=== PATIENT | female | born 1950 | race African-American/Black ===

== ENCOUNTER → 2017-07-05 10:36 | Outpatient (CLI) | payer MEDICARE, OTHER, SELFPAY ==
--- NOTE | 2017-07-05 10:40 | MM_ITS ---
MM Dig screening mamm BI w/CAD CAD Screening COMPARISON: Digital mammograms 03/13/2014 and 09/15/2015 INDICATION: There is history of breast cancer patient's sister and maternal cousin. There has been previous biopsy left breast for benign disease TECHNIQUE: Standard CC and MLO images were obtained. R2 CAD reviewed. FINDINGS: Moderate diffuse fibroglandular and heterogenic densities are seen throughout both breasts. The findings are bilateral and symmetrical. There is a stable asymmetric benign-appearing density inferior left breast. There is no suspicious lesion and there are no suspicious microcalcifications. IMPRESSION: Diffusely dense parenchymal pattern no suspicious lesion seen BI-RADS Category: 2 Benign Finding(s) RECOMMENDED FOLLOW-UP: 1YR - 1 YEAR FOLLOW-UP (A letter has been sent to the patient regarding results of the study.)
== END ==
PROVIDERS: Family Provider Family Medicine; PCP Family Medicine; Visit Provider Family Medicine
DX: Z12.31 Encounter for screening mammogram for malignant neoplasm of breast (principal)
CPT/HCPCS: 77067

== ENCOUNTER → 2017-09-06 07:49 | Outpatient (CLI) | payer MEDICARE, OTHER, SELFPAY ==
--- NOTE | 2017-09-06 07:52 | US_ITS ---
US gallbladder HISTORY: ITS.REASON: RUQ PAIN ORDERING PHYSICIAN: Jesus Gannon MD PATIENT AGE: 67 years COMPARISON: None FINDINGS: PANCREAS: Unremarkable. No obvious mass or abnormal fluid collection. No ductal dilatation LIVER: There are multiple slightly hypoechoic liver lesions the largest in the right hepatic lobe inferiorly measuring 7 x 6 cm. These are suspicious for metastasis. No biliary dilatation. RIGHT KIDNEY: Unremarkable. Normal size and echogenicity. No hydronephrosis GALLBLADDER: A normal gallbladder is not identified. There is an arc of increased echogenicity with posterior acoustical shadowing in the region of the gallbladder fossa consistent with gallbladder filled with stones. No gallbladder wall thickening or pericholecystic fluid, bile duct is upper normal at 7 mm. IMPRESSION: 1. Multiple suspicious hepatic lesions consistent with metastatic disease. Recommend CT of the abdomen without and with contrast with hemangioma protocol. Hemangiomas are considered in the differential diagnosis although ultrasound findings are not characteristic for that entity 2. Wall echo shadow sign consistent with gallbladder filled with stones. Results called and faxed to referring physician's office.
== END ==
PROVIDERS: Family Provider Family Medicine; PCP Family Medicine; Visit Provider Family Medicine
DX: R10.11 Right upper quadrant pain (principal)
CPT/HCPCS: 76705

== ENCOUNTER → 2017-09-13 18:18 | Outpatient (CLI) | payer MEDICARE, OTHER, SELFPAY ==
[2017-09-13 19:30] LABS: Blood Urea Nitrogen 13 mg/dL (7-18); Creatinine,Serum 0.94 mg/dL (0.55-1.02); Estimated Glomerular Filt Rate 59 ml/min (>60); GFR (African American) 72 ML/MIN (>60)
== END ==
PROVIDERS: Visit Provider Family Medicine
DX: R10.11 Right upper quadrant pain (principal)
CPT/HCPCS: 36415; 82565; 84520

== ENCOUNTER → 2017-09-14 09:48 | Outpatient (CLI) | payer MEDICARE, OTHER, SELFPAY ==
--- NOTE | 2017-09-14 09:54 | CT_ITS ---
CT abdomen wo/w con CLINICAL INDICATION: Right upper quadrant pain, multiple liver masses on recent ultrasound ITS.REASON: ABNORMAL US OF GB ORDERING PHYSICIAN: Jesus Gannon MD PATIENT AGE: 67 years COMPARISON: 09/06/2017 TECHNIQUE: Axial images obtained without and with contrast. Post enhanced images performed at 30 seconds, 60 seconds, 5 minutes, and 10 minutes. With sagittal and coronal reformats. All CT scans at the facility use one or more dose reduction, viz: automated exposure control; ma/kV adjustment per patient size (including targeted exams where dose is matched to indication; i.e. head); or iterative reconstruction technique. PROCEDURE: Oral Contrast: None IV Contrast: 75 mL's of Isovue-370. FINDINGS: Lung bases are clear. There are multiple hypodense lesions of the liver. While these do demonstrate some peripheral contrast enhancement, and a are not typical appearance for hemangiomas and highly suspicious for metastatic disease. The largest lesion is in the inferior aspect of the right lobe of the liver measuring 7 cm cephalad to caudad, 6.6 cm transverse, and 6.3 cm AP. These findings are consistent with metastatic disease. Lesions are present in both right and left hepatic lobe. The spleen, pancreas, and adrenal glands are unremarkable. No renal mass or hydronephrosis. There is a small left renal cyst which measures 14 mm. There is a small ventral abdominal wall hernia containing fat. This is 9 cm superior to the umbilicus No acute bony anomalies. IMPRESSION: Multiple heterogeneous isodense liver lesions consistent with metastatic disease as described above. If the workup for primary carcinoma is unsuccessful then, image guided biopsy could be performed.
--- NOTE | 2017-09-14 10:55 | HMH.ITSHM ---
CLLONAZAPAM,TRAZADONE,LAMORTRISINE HCTZ
== END ==
PROVIDERS: Family Provider Family Medicine; PCP Family Medicine; Visit Provider Family Medicine
DX: R93.8 Abnormal findings on diagnostic imaging of other specified body structures (principal)
CPT/HCPCS: 74170; Q9967

== ENCOUNTER 2017-09-26 11:49 | Inpatient (IN) ==
--- NOTE | 2017-09-26 12:38 | Progress Note ---
[facility] Anesthesia Checklist - Patient Identification Patient Identification: Arm Band, Verbal (Name & ) - Structural Data Admitted From: Home Consent for Planned Operative Procedure(s) Verified: Yes Verified Documents: Surgical Consent, History and Physical - NPO Status Verified Time NPO: 00:00 - Additional verifications Anesthesia Reactions: No - Airway Assessment C-Spine Mobility Assessed: Yes TMJ Mobility Assessed: Yes Dentition: Good Dentition (Missing teeth) - Neurological Assessment Level of Consciousness: Awake Hx Seizures: No Numbness or tingling in extremities: No - Anesthesia Plan Anesthesia Risk discussed: Yes Anesthesia Plan: Verified ASA Class: III Anesthesia Type: MAC [facility] Anesthesia HX I have reviewed the patient's past medical history: Yes Medical History: Reports:: Anxiety, Hypertension Denies:: Diabetes Mellitus Type 1, Diabetes Mellitus Type 2, Lung Disease Other Surgeries: Yes: Hysterectomy-Total, Other (Bilateral CTR) Amputation: No Fractures: No
--- NOTE | 2017-09-26 14:01 | Procedure Note ---
[facility] Procedure Note Procedure Note:: Colonoscopy Procedure Report: Sigmoidoscopy/attempted colonoscopy with cold biopsies Endoscopist: Alton Post II, MD Referring physician: Eddie Gannon M.D. Date of Procedure: September 26, 2017 Equipment: Olympus 180 variable stiffness pediatric colonoscope Sedation: MAC sedation Indication: Mrs. Gabriel is a 67-year-old female who has had a significant change in bowel habits over the last 3 months. She reports getting more significant cramps with diarrhea. She has some associated nausea, lightheadedness and diaphoresis. More recently she is only had soft and slimy bowel movements. She reports no rectal bleeding, weight loss or family history of colon cancer. She reports no family history of colitis or Crohn's disease. Her last colonoscopy was more than 10 or 15 years ago. Procedure: Prior to the procedure, a history and physical exam was performed, and patient' s medications and allergies were reviewed. The risks, benefits and alternatives of the sedation and procedure were discussed with the patient. All questions were answered and informed consent was obtained. The patient was brought to the procedure room. Patient identification and proposed procedure were verified by the physician and the nurse. The patient was placed in a left lateral decubitus position and the scope was passed under direct vision. Throughout the procedure, the patient's blood pressure, pulse, and oxygen saturations were monitored continuously. The colonoscopy was accomplished without difficulty. The patient tolerated the procedure well. Findings: On digital rectal examination there was normal rectal tone and there were no external hemorrhoids. The colonoscope was then introduced through the anal canal into the rectum and advanced to 35 cm where a "apple core" stenotic lesion was identified and was felt to be a malignant stricture of the colon in this region that was circumferential. Multiple biopsies were obtained. The remainder of the lower sigmoid and rectum were normal but not fully prepped. Impression: 1. "Apple core" sigmoid stenotic lesionprobable malignant stricture of sigmoid colon at 35 cm from the anal verge Plan: This would explain the patient's change in bowel habits with diarrhea and cramps in the lower abdomen. I do feel that her colon is near obstruction. I do feel that for proper bowel preparation prior to surgery, I would strongly consider colonic stent placement and I will speak with colorectal surgery. I would begin the process of staging with CT scan of the chest abdomen and pelvis along with CEA level. She will need full screening of the remaining colon at some point after surgery.
[2017-09-26 15:52] LABS: Hematocrit 42.2 % (37.0-47.0); Hemoglobin 13.6 g/dL (12.2-16.2)
--- NOTE | 2017-09-26 16:37 | History & Physical Report ---
*Admission Date: 09/26/17 *Chief complaint: vomiting and abdominal pain *History of present illness: 67-year-old female underwent colonoscopy today due to a at least 3 month history of change in bowel habits with loose small watery stools being passed mixed with mucus. Over the last 2 weeks patient has had a decrease in appetite. She saw her primary care provider, Dr. ASHLIE Gannon,1 week ago and outpatient colonoscopy was arranged. Patient underwent colonoscopy today with Dr. Post and was found to have an obstructive colon cancer. Colonoscopy could not be completed due to the colon cancer. Post procedurally patient developed intestinal cramps along with vomiting of feculent material. Patient has been given antiemetics which have helped some. In discussion with Dr. Post plan will be to admit the patient for colonic stenting this Tuesday. Dr. Post did speak with [facility] colorectal surgery but they do not feel that surgery is an option due to metastases that have spread to the liver. In short, surgery is a last resort due to the nature of her cancer. [facility] History I have reviewed the patient's past medical history: Yes Medical History: Reports:: Anxiety, Hypertension Denies:: Diabetes Mellitus Type 1, Diabetes Mellitus Type 2, Lung Disease, Seizures Other Surgeries: Yes: Hysterectomy-Total, Other (Bilateral CTR) Amputation: No Fractures: No - Psychiatric History Pschychiatric History:: Reports:: Anxiety Review of Systems - Constitutional Denies anorexia, Denies body ache(s), Denies chills - Eyes Denies blurry vision - *Cardiovascular Denies chest pain, Denies leg pain with activity - *Respiratory Denies chest congestion, Denies cough - *Gastrointestinal Reports change in bowel habits, Reports heartburn, Denies bloating, Denies coffee ground vomit, Denies constipation, Denies difficulty swallowing - *Musculoskeletal Denies abnormal walking Meds Home Medications Medication Instructions Recorded Confirmed Type Multivitamin with Iron [Daily 1 each PO DAILY 09/20/17 09/26/17 History Multivitamin with Iron] Trazodone HCl [Desyrel 50mg tablet] 50 mg PO HS 09/20/17 09/26/17 History clonazePAM [Clonazepam] 0.5 mg PO BID 09/20/17 09/26/17 History hydroCHLOROthiazide [HCTZ 25mg 25 mg PO DAILY 09/20/17 09/26/17 History tab] lamoTRIgine [Lamictal] 150 mg PO DAILY 09/20/17 09/26/17 History Allergies Allergy/AdvReac Type Severity Reaction Status Date / Time No Known Allergies Allergy Verified 09/20/17 13:56 Exam Vital signs and Labs for Last 24 Hours: Temp Pulse Resp BP Pulse Ox 98.4 F 76 18 163/81 100 09/26/17 14:00 09/26/17 14:50 09/26/17 14:50 09/26/17 14:50 09/26/17 14:50 Laboratory Results - last 24 hr 09/26/17 15:20: Hgb 13.6, Hct 42.2 Narrative: At the time of interview patient had intermittent retching but no emesis. HEENT exam is grossly normal. Neck is without lymphadenopathy. Lungs are clear. Heart has a regular rate and rhythm. Abdomen is soft with mild left- sided tenderness to palpation and active bowel sounds. Patient has active range of motion in all extremities H&P: Result - Labs Labs: Short CBC 09/26/17 Range/Units 15:20 Hgb 13.6 (12.2-16.2) g/dL Hct 42.2 (37.0-47.0) % Assessment and Plan (1) Obstruction of descending colon Current visit: Yes Status: Acute Category: Medical Code(s): K56.609 - Unspecified intestinal obstruction, unspecified as to partial versus complete obstruction (2) Colon cancer metastasized to liver Current visit: Yes Status: Acute Category: Medical Code(s): C18.9 - Malignant neoplasm of colon, unspecified; C78.7 - Secondary malignant neoplasm of liver and intrahepatic bile duct (3) Hypertension Current visit: Yes Status: Acute Category: Medical Code(s): I10 - Essential (primary) hypertension - Assessment and plan all Dx Assessment and Plan for all problems:: Plan will be to admit the patient in anticipation of colonic stenting on Tuesday , September 30. Patient will be started on IV fluids this evening with additional antiemetics ordered. Patient has known gallstones as well. If she is able to make it through the night without significant vomiting a liquid diet will be started.
[2017-09-27 06:52] LABS: Basophils # 0.1 K/mm3 (0-0.2); Basophils % 0.4 % (0.1-2.0); Eosinophils # 0.1 K/mm3 (0.0-0.4); Eosinophils % 1.2 % (0.1-12.0); Hematocrit 38.6 % (37.0-47.0); Hemoglobin 12.4 g/dL (12.2-16.2); Lymphocytes # 1.6 K/mm3 (0.7-4.5); Lymphocytes % 13.7 K/mm3 (10-50); Mean Corpuscular HGB Conc 32.2 g/dL (31.8-35.4); Mean Corpuscular Hemoglobin 29.3 pg (27.0-31.2); Mean Corpuscular Volume 91.1 fl (81-99); Mean Platelet Volume 8.3 fl (7.4-10.4); Monocytes # 0.6 K/mm3 (0.1-1.0); Monocytes % 4.8 % (1.7-9.3); Neutrophils # 9.2 K/mm3 (1.8-7.8); Neutrophils % 79.9 % (37.0-80.0); Platelet Count 295 K/mm3 (142-424); Red Blood Count 4.23 M/mm3 (4.20-5.40); White Blood Count 11.5 K/mm3 (4.8-10.8)
--- NOTE | 2017-09-27 07:30 | Pharmacy Consult Notes ---
[facility] Pharmacy VTE Monitoring - Patient Demographics Admission date: 09/26/17 Report Date: 09/27/17 Time: 07:29 Allergies/Adverse Reactions: Patient Allergies No Known Allergies Allergy (Verified 09/20/17 13:56) Height: 1.65 m Weight: 71.412 kg Patient Problems: Current Active Problems Obstruction of descending colon (Acute) Colon cancer metastasized to liver (Acute) Hypertension (Acute) - VTE Risk Labs: VTE Related Lab Results Hgb 12.4 g/dL (12.2-16.2) 09/27/17 06:04 Hct 38.6 % (37.0-47.0) 09/27/17 06:04 Plt Count 295 K/mm3 (142-424) 09/27/17 06:04 Was VTE Risk Assessment Performed: Yes VTE Score: 2 VTE Risk Level: Very Low Risk Clinical Trial Participant: No - Prophylaxis VTE Prophylaxis Ordered?: Yes Types of VTE Prophylaxis: TEDS Knee High Pharmacologic Type: Enoxaparin
--- NOTE | 2017-09-27 07:50 | Progress Note ---
Internal Medicine - PN: Yu *Date: 09/27/17 *Time: 07:47 Interval history: Anya had nausea and vomiting overnight and at least one liquidy bowel movement. She is not hungry Exam Vital signs and Labs for Last 24 Hours: Temp Pulse Resp BP Pulse Ox 98.4 F 75 18 124/61 95 09/27/17 07:40 09/27/17 07:40 09/27/17 07:40 09/27/17 07:40 09/27/17 07:40 Laboratory Results - last 24 hr 09/26/17 15:20: Ferritin 301 09/26/17 15:20: Hgb 13.6, Hct 42.2 09/27/17 06:04: WBC 11.5 H, RBC 4.23, Hgb 12.4, Hct 38.6, MCV 91.1, MCH 29.3, MCHC 32.2, RDW 13.0, Plt Count 295, MPV 8.3, Neut % (Auto) 79.9, Lymph % (Auto) 13.7, [place] % (Auto) 4.8, Eos % (Auto) 1.2, Baso % (Auto) 0.4, Neut # (Auto) 9.2 H, Lymph # (Auto) 1.6, [place] # (Auto) 0.6, Eos # (Auto) 0.1, Baso # (Auto) 0.1 I & O for Last 24 hours: Intake & Output 09/24/17 09/25/17 09/26/17 09/27/17 11:59 11:59 11:59 11:59 Intake Total 2663 / 2663 Output Total 404 / 404 Balance 2259 / 2259 Weight 157 lb 7 oz Narrative: she looks well. abdomen is soft and nontender with active bowel sounds. Assessment and Plan (1) Obstruction of descending colon Current visit: Yes Status: Acute Category: Medical Code(s): K56.609 - Unspecified intestinal obstruction, unspecified as to partial versus complete obstruction (2) Colon cancer metastasized to liver Current visit: Yes Status: Acute Category: Medical Code(s): C18.9 - Malignant neoplasm of colon, unspecified; C78.7 - Secondary malignant neoplasm of liver and intrahepatic bile duct (3) Hypertension Current visit: Yes Status: Acute Category: Medical Code(s): I10 - Essential (primary) hypertension - Assessment and plan all Dx Assessment and Plan for all problems:: Consider advancement of diet later today.
[2017-09-27 07:58] LABS: Albumin Level 2.9 gm/dL (3.4-5.0); Albumin/Globulin Ratio 0.8 (1.1-1.8); Anion Gap 10.8 mEq/L (5-15); Bilirubin,Total 0.3 mg/dL (0.2-1.0); Calcium 8.6 mg/dL (8.5-10.1); Globulin 3.8 gm/dl (1.3-3.2); Total Protein,Serum 6.7 gm/dL (6.4-8.2)
[2017-09-27 07:59] LABS: Potassium 2.8 mmoL/L (3.5-5.1)
[2017-09-28 06:34] LABS: Anion Gap 9.1 mEq/L (5-15); Potassium 3.1 mmoL/L (3.5-5.1)
--- NOTE | 2017-09-28 07:30 | Progress Note ---
Internal Medicine - PN: Subj *Date: 09/28/17 *Time: 07:28 Interval history: Patient is without complaints. She was able to eat some Jell-O as well as drink some liquids which caused some temporary abdominal distention that was relieved. She denies any nausea or vomiting. She admits to hunger but is fearful of eating. Exam Vital signs and Labs for Last 24 Hours: Temp Pulse Resp BP Pulse Ox 97.8 F 65 20 97/47 98 09/28/17 04:20 09/28/17 04:20 09/28/17 04:20 09/28/17 04:20 09/28/17 04:20 Laboratory Results - last 24 hr 09/27/17 07:28: Sodium 140, Potassium 2.8 L*, Chloride 104, Carbon Dioxide 28, Anion Gap 10.8, BUN 5 L, Creatinine 0.72, Estimated Creat Clear 62, Estimated GFR 81, Est GFR ( Amer) 98, Glucose 127 H, Calcium 8.6, Total Bilirubin 0.3, AST 50 H, ALT 28, Alkaline Phosphatase 136 H, Total Protein 6.7, Albumin 2.9 L, Globulin 3.8 H, Albumin/Globulin Ratio 0.8 L 09/28/17 06:06: Sodium 141, Potassium 3.1 L, Chloride 107, Carbon Dioxide 28, Anion Gap 9.1, BUN 3 L D, Creatinine 0.80, Estimated Creat Clear 49, Estimated GFR 72, Est GFR ( Amer) 87, Glucose 106 I & O for Last 24 hours: Intake & Output 09/25/17 09/26/17 09/27/17 09/28/17 11:59 11:59 11:59 11:59 Intake Total 2663 / 2663 2668 / 2668 Output Total 404 / 404 250 / 250 Balance 2259 / 2259 2418 / 2418 Weight 157 lb 7 oz 1573 lb Narrative: She appears comfortable. Lungs are clear to auscultation. Heart has regular rate and rhythm. Abdomen is soft and nontender. Assessment and Plan (1) Colon cancer metastasized to liver Current visit: Yes Status: Acute Category: Medical Code(s): C18.9 - Malignant neoplasm of colon, unspecified; C78.7 - Secondary malignant neoplasm of liver and intrahepatic bile duct (2) Obstruction of descending colon Current visit: Yes Status: Acute Category: Medical Code(s): K56.609 - Unspecified intestinal obstruction, unspecified as to partial versus complete obstruction (3) Hypertension Current visit: Yes Status: Acute Category: Medical Code(s): I10 - Essential (primary) hypertension - Assessment and plan all Dx Assessment and Plan for all problems:: 1. CT of chest, abdomen, pelvis without contrast today. Liver metastases have already been identified 2. Consult oncology service 3. Add boost to patient's diet
--- NOTE | 2017-09-29 07:12 | Progress Note ---
Internal Medicine - PN: Subj *Date: 09/29/17 *Time: 07:09 Interval history: Patient underwent CT scanning of the chest, abdomen, pelvis yesterday which revealed metastatic disease in the liver as well as in the right lung. Drinking the contrast in addition to a clear liquid diet did cause some abdominal distention and cramping. Patient continues to have small mucousy stools pass. Exam Vital signs and Labs for Last 24 Hours: Temp Pulse Resp BP Pulse Ox 100.0 F H 95 H 18 115/54 95 09/29/17 04:00 09/29/17 04:00 09/29/17 04:00 09/29/17 04:00 09/29/17 04:00 I & O for Last 24 hours: Intake & Output 09/26/17 09/27/17 09/28/17 09/29/17 11:59 11:59 11:59 11:59 Intake Total 2663 / 2663 3148 / 3148 3642 / 3642 Output Total 404 / 404 250 / 250 750 / 750 Balance 2259 / 2259 2898 / 2898 2892 / 2892 Weight 157 lb 7 oz 158 lb 4 oz 162 lb 3 oz Narrative: Patient is in no distress. Heart has a regular rate and rhythm. Lungs are clear to auscultation. Abdomen is soft, nontender, nondistended. Bowel sounds are present Assessment and Plan (1) Colon cancer metastasized to liver Current visit: Yes Status: Acute Category: Medical Code(s): C18.9 - Malignant neoplasm of colon, unspecified; C78.7 - Secondary malignant neoplasm of liver and intrahepatic bile duct (2) Obstruction of descending colon Current visit: Yes Status: Acute Category: Medical Code(s): K56.609 - Unspecified intestinal obstruction, unspecified as to partial versus complete obstruction (3) Hypertension Current visit: Yes Status: Acute Category: Medical Code(s): I10 - Essential (primary) hypertension (4) Fever Current visit: Yes Status: Acute Category: Medical Code(s): R50.9 - Fever , unspecified (5) Hypokalemia Current visit: Yes Status: Acute Category: Medical Code(s): E87.6 - Hypokalemia - Assessment and plan all Dx Assessment and Plan for all problems:: 1. Continue IV fluids of D5 half-normal saline with potassium 2. Continue to monitor for fevers. Etiology may have been reaction to contrast versus underlying malignancy. Check CBC this morning 3. BMP this a.m. to monitor potassium
[2017-09-29 08:29] LABS: Anion Gap 10.2 mEq/L (5-15); Potassium 3.2 mmoL/L (3.5-5.1)
[2017-09-29 08:37] LABS: Basophils % 0.5 % (0.1-2.0); Eosinophils # 0.2 K/mm3 (0.0-0.4); Eosinophils % 2.6 % (0.1-12.0); Hematocrit 36.1 % (37.0-47.0); Hemoglobin 11.8 g/dL (12.2-16.2); Lymphocytes # 0.7 K/mm3 (0.7-4.5); Lymphocytes % 10.4 K/mm3 (10-50); Mean Corpuscular HGB Conc 32.6 g/dL (31.8-35.4); Mean Corpuscular Hemoglobin 29.3 pg (27.0-31.2); Mean Corpuscular Volume 89.9 fl (81-99); Mean Platelet Volume 8.3 fl (7.4-10.4); Monocytes # 0.3 K/mm3 (0.1-1.0); Monocytes % 4.9 % (1.7-9.3); Neutrophils # 5.3 K/mm3 (1.8-7.8); Neutrophils % 81.5 % (37.0-80.0); Platelet Count 287 K/mm3 (142-424); Red Blood Count 4.02 M/mm3 (4.20-5.40); White Blood Count 6.5 K/mm3 (4.8-10.8)
--- NOTE | 2017-09-30 06:26 | Progress Note ---
Internal Medicine - PN: Subj *Date: 09/30/17 *Time: 06:23 Interval history: The patient had one episode of pain overnight and was medicated with relief of pain. She continues to have some bloating with attempts at liquids. She is scheduled for colonic stent placement at noon today with Dr. Post Exam Vital signs and Labs for Last 24 Hours: Temp Pulse Resp BP Pulse Ox 98.4 F 73 18 131/73 98 09/30/17 04:00 09/30/17 04:00 09/30/17 04:00 09/30/17 04:00 09/30/17 04:00 Laboratory Results - last 24 hr 09/26/17 15:20: Iron 25 L, TIBC 276, Iron Saturation 9 L, Unsaturated IBC 251, Carcinoembryonic Ag 43.0 H 09/29/17 07:33: WBC 6.5 D, RBC 4.02 L, Hgb 11.8 L, Hct 36.1 L, MCV 89.9, MCH 29.3, MCHC 32.6, RDW 13.0, Plt Count 287, MPV 8.3, Neut % (Auto) 81.5 H, Lymph % (Auto) 10.4, [place] % (Auto) 4.9, Eos % (Auto) 2.6, Baso % (Auto) 0.5, Neut # ( Auto) 5.3, Lymph # (Auto) 0.7, [place] # (Auto) 0.3, Eos # (Auto) 0.2, Baso # (Auto ) 0.0 09/29/17 07:33: Sodium 142, Potassium 3.2 L, Chloride 108 H, Carbon Dioxide 27, Anion Gap 10.2, BUN 2 L D, Creatinine 0.86, Estimated Creat Clear 63, Estimated GFR 66, Est GFR ( Amer) 80, Glucose 107 H I & O for Last 24 hours: Intake & Output 09/27/17 09/28/17 09/29/17 09/30/17 11:59 11:59 11:59 11:59 Intake Total 2663 / 2663 3148 / 3148 3642 / 3642 3202 / 3202 Output Total 404 / 404 250 / 250 750 / 750 350 / 350 Balance 2259 / 2259 2898 / 2898 2892 / 2892 2852 / 2852 Weight 157 lb 7 oz 158 lb 4 oz 162 lb 3 oz 166 lb 2 oz Narrative: She is awake and alert. Lungs are clear to auscultation. Heart has a regular rate and rhythm. Abdomen is soft with mild left lower quadrant tenderness. Bowel sounds are present Assessment and Plan (1) Colon cancer metastasized to liver Current visit: Yes Status: Acute Category: Medical Code(s): C18.9 - Malignant neoplasm of colon, unspecified; C78.7 - Secondary malignant neoplasm of liver and intrahepatic bile duct (2) Obstruction of descending colon Current visit: Yes Status: Acute Category: Medical Code(s): K56.609 - Unspecified intestinal obstruction, unspecified as to partial versus complete obstruction (3) Hypertension Current visit: Yes Status: Acute Category: Medical Code(s): I10 - Essential (primary) hypertension (4) Fever Current visit: Yes Status: Acute Category: Medical Code(s): R50.9 - Fever , unspecified (5) Hypokalemia Current visit: Yes Status: Acute Category: Medical Code(s): E87.6 - Hypokalemia - Assessment and plan all Dx Assessment and Plan for all problems:: Colonic stent placement today. If this is successful patient will be discharged she is able to home with outpatient referral to [facility] colorectal surgery. If stenting is unsuccessful answer will be arranged today
--- NOTE | 2017-09-30 12:33 | Procedure Note ---
[facility] Procedure Note Procedure Note:: Colonoscopy Procedure Report: Sigmoidoscopy/incomplete colonoscopy with colonic mesh stent placement Endoscopist: Alton Post II, MD Referring physician: Eddie Gannon M.D./Jn Reyes MD/Reynaldo Negrete MD Date of Procedure: September 30, 2017 Equipment: Olympus 180 variable stiffness pediatric colonoscope Sedation: MAC sedation Indication: Mrs. 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 She did undergo attempted colonoscopy 4 days ago (September 26, 2017) and had a malignant sigmoid stricture and the colonoscope could not pass this. She was admitted for rehydration. Biopsies of the sigmoid colon did show invasive moderately differentiated adenocarcinoma. She returns today for colonic stent placement. Procedure: Prior to the procedure, a history and physical exam was performed, and patient' s medications and allergies were reviewed. The risks, benefits and alternatives of the sedation and procedure were discussed with the patient. All questions were answered and informed consent was obtained. The patient was brought to the procedure room. Patient identification and proposed procedure were verified by the physician and the nurse. The patient was placed in a left lateral decubitus position and the scope was passed under direct vision. Throughout the procedure, the patient's blood pressure, pulse, and oxygen saturations were monitored continuously. The colonoscopy was accomplished without difficulty. The patient tolerated the procedure well. Findings: On digital rectal examination there was normal rectal tone and no external hemorrhoids. The scope was then inserted through the anal canal into the rectum and advanced to 35 cm where the malignant apple core stricture was identified. The scope was not advanced through the stricture. Under fluoroscopy, the stricture length was identified using contrast to be approximately 3-4 cm maximally in length. A 90 mm length (9 cm) colonic stent with a 30 mm proximal and 25 mm distal diameter wallflex mesh colonic stent was deployed across the stricture using fluoroscopy with excellent placement and hourglass appearance to the stent on fluoroscopy indicating fully covering the malignant stricture. The procedure took <5 minutes of fluoroscopy time and the patient tolerated the procedure well and remained hemodynamically stable throughout and postprocedure. Impression: 1. Malignant sigmoid stricture (proximal sigmoid at 35 cm from anal verge) status post 9 cm mesh colonic stent placement with appearance of excellent deployment position fluoroscopically Plan: This stent should alleviate the obstruction and allow for her to have more elective surgery if required. This will also allow for her to have re- anastomosis of the colon rather than colostomy. Given the fact that she has widely metastatic disease, I do feel that we should take some time in consideration of morbidity/mortality of surgery given her advanced status. I will discuss with the patient. She will follow-up with Dr. Negrete and Dr. Reyes.
--- NOTE | 2017-10-01 07:42 | Progress Note ---
Internal Medicine - PN: Subj *Date: 10/01/17 *Time: 07:40 Interval history: Patient has had fairly consistent abdominal pain since her procedure yesterday. Intensity of pain has waxed and waned. She has been given Toradol and morphine intravenously which does reduce the pain. Yesterday evening she started having bowel movement about every 30 minutes. She has noticed some blood in the bowel movements as well. Patient is status post successful stenting of the apple core lesion in the left colon. She did try some soft foods and liquids yesterday evening and this caused increased cramping. However she does point out that bloating and pain are better since colonic stenting Exam Vital signs and Labs for Last 24 Hours: Temp Pulse Resp BP Pulse Ox 98.2 F 80 20 128/71 96 10/01/17 04:00 10/01/17 04:00 10/01/17 04:00 10/01/17 04:00 10/01/17 04:00 I & O for Last 24 hours: Intake & Output 09/28/17 09/29/17 09/30/17 10/01/17 11:59 11:59 11:59 11:59 Intake Total 3148 / 3148 3642 / 3642 3202 / 3202 1257 / 1257 Output Total 250 / 250 750 / 750 350 / 350 Balance 2898 / 2898 2892 / 2892 2852 / 2852 1257 / 1257 Weight 158 lb 4 oz 162 lb 3 oz 166 lb 2 oz Narrative: She appears comfortable and does not appear to be in any pain. Lungs are clear to auscultation. Heart has a regular rate and rhythm. Abdomen is soft with some left and right lower quadrant tenderness to palpation. Bowel sounds are present Assessment and Plan (1) Colon cancer metastasized to liver Current visit: Yes Status: Acute Category: Medical Code(s): C18.9 - Malignant neoplasm of colon, unspecified; C78.7 - Secondary malignant neoplasm of liver and intrahepatic bile duct (2) Obstruction of descending colon Current visit: Yes Status: Acute Category: Medical Code(s): K56.609 - Unspecified intestinal obstruction, unspecified as to partial versus complete obstruction (3) Hypertension Current visit: Yes Status: Acute Category: Medical Code(s): I10 - Essential (primary) hypertension (4) Fever Current visit: Yes Status: Acute Category: Medical Code(s): R50.9 - Fever , unspecified (5) Hypokalemia Current visit: Yes Status: Acute Category: Medical Code(s): E87.6 - Hypokalemia - Assessment and plan all Dx Assessment and Plan for all problems:: I explained to the patient that frequent bowel movements are to be expected and are not encouraging sign. Start a full liquid diet with patient attempting what she wishes. Stop IV fluids and begin ambulating more. We also discussed her diagnosis of metastatic colon cancer. She has follow-up with Dr. Reyes. I have encouraged her to think of questions and write them down in preparation for her appointment
--- NOTE | 2017-10-02 07:21 | Discharge Summary ---
General - General Admission date:: 09/26/17 Discharge date: 10/02/17 HPI HPI: 67-year-old female underwent colonoscopy today due to a at least 3 month history of change in bowel habits with loose small watery stools being passed mixed with mucus. Over the last 2 weeks patient has had a decrease in appetite. She saw her primary care provider, Dr. ASHLIE Gannon,1 week ago and outpatient colonoscopy was arranged. Patient underwent colonoscopy today with Dr. Post and was found to have an obstructive colon cancer. Colonoscopy could not be completed due to the colon cancer. Post procedurally patient developed intestinal cramps along with vomiting of feculent material. Patient has been given antiemetics which have helped some. In discussion with Dr. Post plan will be to admit the patient for colonic stenting this Tuesday. Dr. Post did speak with [facility] colorectal surgery but they do not feel that surgery is an option due to metastases that have spread to the liver. In short, surgery is a last resort due to the nature of her cancer. Hospital Course Hospital Course: Upon admission patient was placed on a clear liquid diet and IV fluids of D5 half-normal saline with potassium. She had hypokalemia that was corrected with fluids. Initially during admission patient had infrequent small loose mucousy stools. Attempts at drinking fluids would predose abdominal bloating which would resolve after about 30 minutes. Patient's pain was controlled with either Toradol or morphine. made the patient nauseous. On September 30 patient underwent successful colonic stenting of the apple core lesion in the left colon. Patient had bowel movement almost immediately after insertion of the stent. Over the following 24 hours of stenting patient had frequent small loose mucousy stools and make trips to the bathroom every 30 minutes. Rate of stools decreased after the first 24 hours. Patient continued to have some crampy abdominal pain. Diet was advanced to full liquids which patient did tolerate and would have distention for a few minutes after attempts at liquids. Stools remain soft. On October 02 patient was discharged home. While hospitalized Dr. Reyes of the oncology service was consulted and she has follow-up appointment with him on October 03. She will follow-up in my office on October 04. Objective Vital signs: Temp Pulse Resp BP Pulse Ox 98.5 F 78 16 106/45 92 L 10/02/17 04:00 10/02/17 04:00 10/02/17 04:00 10/02/17 04:00 10/02/17 04:00 DS: Diagnosis - Discharge Diagnosis (1) Colon cancer metastasized to liver Status: Acute (2) Obstruction of descending colon Status: Acute (3) Hypertension Status: Acute (4) Fever Status: Acute (5) Hypokalemia Status: Acute Discharge Plan - Patient Discharge Instructions ACTIVITY: Continue current activity DIET: continue same diet Patient Instructions: Colon Cancer - Follow up Plan Follow up with: Binh Reyes MD [Staff Physician] - 1 day Disposition: Home, Self-Fci Medications: Home Medications Medication Instructions Recorded Confirmed Type Multivitamin with Iron [Daily 1 each PO DAILY 09/20/17 09/26/17 History Multivitamin with Iron] Trazodone HCl [Desyrel 50mg tablet] 50 mg PO HS 09/20/17 09/26/17 History clonazePAM [Clonazepam] 0.5 mg PO BID 09/20/17 09/26/17 History hydroCHLOROthiazide [HCTZ 25mg 25 mg PO DAILY 09/20/17 09/26/17 History tab] lamoTRIgine [Lamictal] 150 mg PO DAILY 09/20/17 09/26/17 History Latanoprost [Xalatan 0.005% Ophth 1 drop OP HS 09/27/17 09/27/17 History Soln 2.5mL] Prescriptions/Medication Reconciliation: New Hydrocod/Acet 5/325 mg [Cascade 5/325mg tablet] 1 tab PO Q6HP PRN #15 tab PRN Reason: abdominal pain Dicyclomine HCl [Bentyl 10mg capsule] 10 mg PO QIDP PRN #60 cap PRN Reason: abdominal cramping Continue clonazePAM [Clonazepam] 0.5 mg PO BID hydroCHLOROthiazide [HCTZ 25mg tab] 25 mg PO DAILY Trazodone HCl [Desyrel 50mg tablet] 50 mg PO HS Multivitamin with Iron [Daily Multivitamin with Iron] 1 each PO DAILY lamoTRIgine [Lamictal] 150 mg PO DAILY Latanoprost [Xalatan 0.005% Ophth Soln 2.5mL] 1 drop OP HS
--- NOTE | 2017-10-03 15:09 | Consult Report ---
*Admission Date: 09/21/17 *History of present illness: 67-year-old female underwent colonoscopy today due to a at least 3 month history of change in bowel habits with loose small watery stools being passed mixed with mucus. Over the last 2 weeks patient has had a decrease in appetite. She saw her primary care provider, Dr. ASHLIE Gannon,1 week ago and outpatient colonoscopy was arranged. Patient underwent colonoscopy today with Dr. Post and was found to have an obstructive colon cancer. Colonoscopy could not be completed due to the colon cancer. Post procedurally patient developed intestinal cramps along with vomiting of feculent material. Patient has been given antiemetics which have helped some. In discussion with Dr. Post plan will be to admit the patient for colonic stenting this Tuesday. Dr. Post did speak with [facility] colorectal surgery but they do not feel that surgery is an option due to metastases that have spread to the liver. In short, surgery is a last resort due to the nature of her cancer. [facility] History Medical History: Reports:: Anxiety, Cancer (COLON FOUND TODAY IN COLON), Hypertension Denies:: Diabetes Mellitus Type 1, Diabetes Mellitus Type 2, Lung Disease, MRSA, Seizures Other Medical History: Reports: Arthritis, Cataracts (REMOVED CATARACTS), Glaucoma, Hormone Therapy, Liver Disease (LESIONS ON LIVER), Sinus Problems Laterality Cases: Bilateral: Carpal Tunnel Release Other Surgeries: Yes: Colonoscopy, Hysterectomy-Total, Hysterectomy-Partial ( ONE OVARY LEFT), Tubal Ligation, Other (Bilateral CTR) Amputation: No Fractures: No - *Social History Educational Level: Attended High School Smoking Status: Former smoker #Yrs smoked (if former smoker): 10 Alcohol Intake: current Alcohol Intake Frequency:: holidays/special occasions only Occupational Status: retired Housing: house Household Members: family - Psychiatric History Expresses thoughts of harming self/others: None Suicide Plan Description: No Plan Pschychiatric History:: Reports:: Anxiety *Family Hx:: Cancer, Heart Attack, Hypertension, Stroke Review of Systems - *Neurologic Denies abnormal walking Meds Home Medications Medication Instructions Recorded Confirmed Type Multivitamin with Iron [Daily 1 each PO DAILY 09/20/17 09/26/17 History Multivitamin with Iron] Trazodone HCl [Desyrel 50mg tablet] 50 mg PO HS 09/20/17 09/26/17 History clonazePAM [Clonazepam] 0.5 mg PO BID 09/20/17 09/26/17 History hydroCHLOROthiazide [HCTZ 25mg 25 mg PO DAILY 09/20/17 09/26/17 History tab] lamoTRIgine [Lamictal] 150 mg PO DAILY 09/20/17 09/26/17 History Latanoprost [Xalatan 0.005% Ophth 1 drop OP HS 09/27/17 09/27/17 History Soln 2.5mL] Allergies Allergy/AdvReac Type Severity Reaction Status Date / Time No Known Allergies Allergy Verified 09/20/17 13:56 Exam Vital signs and Labs for Last 24 Hours: Temp Pulse Resp BP Pulse Ox 98.4 F 86 18 112/54 94 L 10/02/17 07:46 10/02/17 07:46 10/02/17 07:46 10/02/17 07:46 10/02/17 07:46 I & O for Last 24 hours: Intake & Output 09/30/17 10/01/17 10/02/17 10/03/17 23:59 23:59 23:59 23:59 Intake Total 2962 / 2962 [id number] Output Total 350 / 350 Balance 2612 / 2612 185 / 1856 Weight 166 lb 2 oz 170 lb 7 oz Internal Medicine - CN: Reslt - Labs CBC & Chem 7: 09/29/17 07:33 09/29/17 07:33 Assessment and Plan (1) Colon cancer metastasized to liver Status: Acute Category: Medical Code(s): C18.9 - Malignant neoplasm of colon , unspecified; C78.7 - Secondary malignant neoplasm of liver and intrahepatic bile duct (2) Obstruction of descending colon Status: Acute Category: Medical Code(s): K56.609 - Unspecified intestinal obstruction, unspecified as to partial versus complete obstruction (3) Hypertension Status: Acute Category: Medical Code(s): I10 - Essential (primary) hypertension (4) Fever Status: Acute Category: Medical Code(s): R50.9 - Fever, unspecified (5) Hypokalemia Status: Acute Category: Medical Code(s): E87.6 - Hypokalemia
== END 2017-10-02 08:22 | disposition home or self-care (01) ==
LOC: OUTP 11:49 → 2ND 11:49 → OBSVTOIN 16:11
PROVIDERS: ADMIT Family Medicine; ATTEND Family Medicine

== ENCOUNTER → 2017-10-07 13:50 | Outpatient (CLI) | payer MEDICARE, OTHER, SELFPAY ==
[2017-10-07 14:38] LABS: Basophils # 0.1 K/mm3 (0-0.2); Basophils % 0.7 % (0.1-2.0); Eosinophils # 0.4 K/mm3 (0.0-0.4); Eosinophils % 3.3 % (0.1-12.0); Hematocrit 40.4 % (37.0-47.0); Hemoglobin 13.2 g/dL (12.2-16.2); Lymphocytes # 1.5 K/mm3 (0.7-4.5); Lymphocytes % 13.6 K/mm3 (10-50); Mean Corpuscular HGB Conc 32.6 g/dL (31.8-35.4); Mean Corpuscular Hemoglobin 29.4 pg (27.0-31.2); Mean Corpuscular Volume 90.3 fl (81-99); Mean Platelet Volume 7.8 fl (7.4-10.4); Monocytes # 0.4 K/mm3 (0.1-1.0); Monocytes % 3.2 % (1.7-9.3); Neutrophils # 8.8 K/mm3 (1.8-7.8); Neutrophils % 79.3 % (37.0-80.0); Platelet Count 467 K/mm3 (142-424); Red Blood Count 4.47 M/mm3 (4.20-5.40); Red Cell Distribution Width 13.2 % (11.5-17.5); White Blood Count 11.1 K/mm3 (4.8-10.8)
[2017-10-07 15:17] LABS: Anion Gap 11.8 mEq/L (5-15); Blood Urea Nitrogen 6 mg/dL (7-18); Carbon Dioxide 33 mmol/L (21.0-32.0); Chloride 100 mmol/L (98-107); Creatinine,Serum 0.87 mg/dL (0.55-1.02); Estimated Glomerular Filt Rate 65 ml/min (>60); GFR (African American) 79 ML/MIN (>60); Glucose 121 mg/dL (74-106); Potassium 3.8 mmoL/L (3.5-5.1); Sodium 141 mmol/L (136-145)
== END ==
PROVIDERS: Visit Provider Surgery
DX: Z01.818 Encounter for other preprocedural examination (principal); C18.9 Malignant neoplasm of colon, unspecified
CPT/HCPCS: 36415; 80048; 85025

== ENCOUNTER 2017-10-27 09:05 | Outpatient (CLI) | payer MEDICARE, OTHER, SELFPAY ==
[2017-10-27] VITALS (15 sets, daily range): BP systolic 113–134; BP diastolic 51–77; PULSE 70–93; RESP 16–18; TEMP 36.9; BMI 25.2
[2017-10-27 10:11] LABS: Basophils # 0.1 K/mm3 (0-0.2); Basophils % 0.6 % (0.1-2.0); Eosinophils # 0.4 K/mm3 (0.0-0.4); Eosinophils % 4.3 % (0.1-12.0); Hematocrit 37.1 % (37.0-47.0); Hemoglobin 11.5 g/dL (12.2-16.2); Lymphocytes # 1.2 K/mm3 (0.7-4.5); Lymphocytes % 13.3 K/mm3 (10-50); Mean Corpuscular HGB Conc 31.1 g/dL (31.8-35.4); Mean Corpuscular Hemoglobin 28.4 pg (27.0-31.2); Mean Corpuscular Volume 91.4 fl (81-99); Mean Platelet Volume 7.5 fl (7.4-10.4); Monocytes # 0.3 K/mm3 (0.1-1.0); Monocytes % 2.8 % (1.7-9.3); Neutrophils # 6.9 K/mm3 (1.8-7.8); Neutrophils % 78.9 % (37.0-80.0); Platelet Count 311 K/mm3 (142-424); Red Blood Count 4.06 M/mm3 (4.20-5.40); Red Cell Distribution Width 13.3 % (11.5-17.5); White Blood Count 8.8 K/mm3 (4.8-10.8)
[2017-10-27 10:24] LABS: Alanine Aminotransferase 36 U/L (12-78); Albumin Level 3.1 gm/dL (3.4-5.0); Albumin/Globulin Ratio 0.8 (1.1-1.8); Alkaline Phosphatase 208 U/L (46-116); Anion Gap 11.4 mEq/L (5-15); Aspartate Amino Transferase 68 U/L (15-37); Bilirubin,Total 0.4 mg/dL (0.2-1.0); Blood Urea Nitrogen 11 mg/dL (7-18); Calcium 9.1 mg/dL (8.5-10.1); Carbon Dioxide 30 mmol/L (21.0-32.0); Chloride 103 mmol/L (98-107); Creatinine Clearance Estimated 59 mL/min (0-300); Creatinine,Serum 0.94 mg/dL (0.55-1.02); Estimated Glomerular Filt Rate 59 ml/min (>60); GFR (African American) 72 ML/MIN (>60); Globulin 4.1 gm/dl (1.3-3.2); Glucose 128 mg/dL (74-106); Potassium 3.4 mmoL/L (3.5-5.1); Sodium 141 mmol/L (136-145); Total Protein,Serum 7.2 gm/dL (6.4-8.2)
[2017-10-27 10:31] LABS: Microscopic, Urine URINE MICROSCOPIC (MICROSCOPIC)
[2017-10-27 10:32] LABS: Appearance,Urine SL CLOUDY (Clear); Bilirubin,Urine Negative (Negative); Blood, Urine Negative (Negative); Color,Urine YELLOW (Yellow); Glucose,Urine (UA) Negative (Negative); Ketones,Urine Negative (Negative); Leukocyte Esterase,Urine Negative (Negative); Nitrate,Urine Negative (Negative); PH,Urine 5.5 (5.0-8.5); Protein,Urine Negative (Negative); Specific Gravity, Urine >= 1.030 (1.005-1.030)
[2017-10-27 10:37] LABS: Bacteria,Urine 3+ /lpf; Mucus,Urine 3+ /lpf; WBC,Urine Occasional #/hpf (0-3)
== END 2017-10-27 15:25 | disposition home or self-care (01) ==
LOC: INF 09:13
PROVIDERS: Family Provider Family Medicine; PCP Family Medicine; Visit Provider Internal Medicine
DX: C18.9 Malignant neoplasm of colon, unspecified (principal); R82.90 Unspecified abnormal findings in urine
CPT/HCPCS: 80053; 81001; 85025; 87086; 96413; 96415; 96417; J9035; J9206; Q0166

== ENCOUNTER 2017-11-09 09:40 | Outpatient (CLI) | payer MEDICARE, OTHER, SELFPAY ==
[2017-11-09] VITALS (13 sets, daily range): BP systolic 117–141; BP diastolic 64–81; PULSE 72–83; RESP 16–18; TEMP 36.1–36.2; BMI 27.4
[2017-11-09 10:20] LABS: Basophils % 0.2 % (0.1-2.0); Eosinophils # 0.3 K/mm3 (0.0-0.4); Eosinophils % 3.2 % (0.1-12.0); Hematocrit 37.5 % (37.0-47.0); Hemoglobin 11.7 g/dL (12.2-16.2); Lymphocytes # 1.4 K/mm3 (0.7-4.5); Lymphocytes % 16.8 K/mm3 (10-50); Mean Corpuscular HGB Conc 31.3 g/dL (31.8-35.4); Mean Corpuscular Hemoglobin 28.1 pg (27.0-31.2); Mean Corpuscular Volume 89.8 fl (81-99); Mean Platelet Volume 7.2 fl (7.4-10.4); Monocytes # 0.2 K/mm3 (0.1-1.0); Monocytes % 2.1 % (1.7-9.3); Neutrophils # 6.7 K/mm3 (1.8-7.8); Neutrophils % 77.7 % (37.0-80.0); Platelet Count 498 K/mm3 (142-424); Red Blood Count 4.18 M/mm3 (4.20-5.40); Red Cell Distribution Width 13.7 % (11.5-17.5); White Blood Count 8.6 K/mm3 (4.8-10.8)
[2017-11-09 10:35] LABS: Alanine Aminotransferase 15 U/L (12-78); Albumin Level 3.2 gm/dL (3.4-5.0); Albumin/Globulin Ratio 0.7 (1.1-1.8); Alkaline Phosphatase 167 U/L (46-116); Anion Gap 12.9 mEq/L (5-15); Aspartate Amino Transferase 25 U/L (15-37); Bilirubin,Total 0.3 mg/dL (0.2-1.0); Blood Urea Nitrogen 12 mg/dL (7-18); Calcium 9.3 mg/dL (8.5-10.1); Carbon Dioxide 30 mmol/L (21.0-32.0); Chloride 101 mmol/L (98-107); Creatinine Clearance Estimated 57 mL/min (0-300); Creatinine,Serum 1.14 mg/dL (0.55-1.02); Estimated Glomerular Filt Rate 48 ml/min (>60); GFR (African American) 58 ML/MIN (>60); Globulin 4.4 gm/dl (1.3-3.2); Glucose 144 mg/dL (74-106); Sodium 141 mmol/L (136-145); Total Protein,Serum 7.6 gm/dL (6.4-8.2)
[2017-11-09 10:38] LABS: Potassium 2.9 mmoL/L (3.5-5.1)
[2017-11-09 11:27] LABS: Microscopic, Urine URINE MICROSCOPIC (MICROSCOPIC)
[2017-11-09 11:31] LABS: Bilirubin,Urine Negative (Negative); Blood, Urine Negative (Negative); Color,Urine YELLOW (Yellow); Glucose,Urine (UA) Negative (Negative); Ketones,Urine Negative (Negative); Leukocyte Esterase,Urine Negative (Negative); Nitrate,Urine Negative (Negative); PH,Urine 5.5 (5.0-8.5); Protein,Urine Negative (Negative); Urobilinogen,Urine 0.2 EU/dl (0.2)
[2017-11-09 11:47] LABS: Bacteria,Urine 2+ /lpf; Squamous Epithelial Cell,Urine 20-50 #/hpf (0-5); WBC,Urine Occasional #/hpf (0-3)
[2017-11-09 11:48] LABS: Appearance,Urine Slightly Cloudy (Clear)
--- NOTE | 2017-11-09 16:55 | PC.NURSE ---
1135 - PREMEDICATED WITH KYTRIL 2MG PO AT THIS TIME. 1200 - ADMINISTERED POTASSIUM 40MEQ PO AT THIS TIME DUE TO K+ LEVEL 2.9.
== END 2017-11-09 15:30 | disposition home or self-care (01) ==
LOC: INF 09:42
PROVIDERS: Family Provider Family Medicine; PCP Family Medicine; Visit Provider Internal Medicine
DX: C18.9 Malignant neoplasm of colon, unspecified (principal); Z51.11 Encounter for antineoplastic chemotherapy; R82.90 Unspecified abnormal findings in urine
CPT/HCPCS: 80053; 81001; 85025; 87086; 96413; 96415; 96417; J9035; J9206; Q0166

== ENCOUNTER 2017-11-14 09:51 | Inpatient (IN) ==
--- NOTE | 2017-11-14 10:38 | Emergency Department Note ---
ED Disposition Clinical Impression: Abdominal pain with vomiting Disposition: Admitted As Inpatient Condition on Discharge: Good - Critical Care Critical Care Time: No Attestation: On 11/14/17, the high probability of a clinically significant, sudden or life threatening deterioration of the following system(s) required my full and direct attention, intervention and personal management. The time I documented below is in addition to time spent performing reported procedures but includes the following listed in this critical care notation. Medical Decision Making - Medical Records Medical records reviewed: Yes: I reviewed the patient's medical records. - Naeem Inquiry Pt receiving controlled substance: No Naeem was queried for this patient: No Vital Signs: 11/14/17 09:56 11/14/17 11:47 11/14/17 13:00 Temperature 99.2 F Temperature Source Oral Pulse Rate [Right] 107 H 92 H 98 H Respiratory Rate 49 H 18 16 Blood Pressure [Right Arm] 143/86 162/90 129/63 Blood Pressure Mean [Right Arm] 105 114 85 Blood Pressure Source [Right Arm] Automatic Cuff Automatic Cuff Blood Pressure Position [Right Arm] Sitting Supine 02 Sat by Pulse Oximetry 98 98 96 Oxygen Delivery Method Room Air Room Air Room Air 11/14/17 13:30 Temperature Temperature Source Pulse Rate [Right] 101 H Respiratory Rate 16 Blood Pressure [Right Arm] 138/84 Blood Pressure Mean [Right Arm] 102 Blood Pressure Source [Right Arm] Automatic Cuff Blood Pressure Position [Right Arm] Supine 02 Sat by Pulse Oximetry 98 Oxygen Delivery Method Room Air - Lab Data Lab Results 11/14/17 10:55: WBC 9.2, RBC 4.33, Hgb 12.3, Hct 37.9, MCV 87.5, MCH 28.5, MCHC 32.5, RDW 15.4, Plt Count 495 H, MPV 7.4, Neut % (Auto) 81.8 H, Lymph % (Auto) 12.6, Mobile % (Auto) 3.6, Eos % (Auto) 1.7, Baso % (Auto) 0.2, Neut # (Auto) 7.5 , Lymph # (Auto) 1.2, Mobile # (Auto) 0.3, Eos # (Auto) 0.2, Baso # (Auto) 0.0 11/14/17 10:55: Sodium 137, Potassium 3.5, Chloride 98, Carbon Dioxide 29, Anion Gap 13.5, BUN 13, Creatinine 0.95, Estimated Creat Clear 61, Estimated GFR 59, Est GFR ( Amer) 71, Glucose 127 H, Calcium 9.7, Total Bilirubin 0.5, AST 21, ALT 12, Alkaline Phosphatase 156 H, Total Protein 7.7, Albumin 3.2 L, Globulin 4.5 H, Albumin/Globulin Ratio 0.7 L Result diagrams: 11/14/17 10:55 11/14/17 10:55 Orders (Tests/Meds): ED MEDICATIONS Generic Name Dose Route Start Last Admin Trade Name Freq PRN Reason Stop Dose Admin Sodium Chloride 1,000 mls @ 75 mls/hr 11/14/17 10:30 11/14/17 10:55 Sod Chlor 0.9% 1000ml Bag IV 12/14/17 10:29 75 mls/hr .[id number] DEN Administration Discontinued Medications Generic Name Dose Route Start Last Admin Trade Name Freq PRN Reason Stop Dose Admin Iopamidol 75 ml 11/14/17 12:39 11/14/17 12:40 [id number]; 75ml Vial IV 11/14/17 12:40 75 ml ONCE ONE Administration Morphine Sulfate 2 mg 11/14/17 10:29 11/14/17 10:55 Morphine 2mg/Ml Syringe IV 11/14/17 10:30 2 mg ONCE ONE Administration Morphine Sulfate 2 mg 11/14/17 12:11 11/14/17 12:15 Morphine 2mg/2ml Syringe IV 11/14/17 12:12 2 mg ONCE ONE Administration Ondansetron HCl 4 mg 11/14/17 10:29 11/14/17 10:55 Zofran 4mg/2ml Vial IV 11/14/17 10:30 4 mg ONCE ONE Administration Sodium Chloride 10 ml 11/14/17 12:39 11/14/17 12:40 Rad-Saline Flush 10ml Syringe IV 11/14/17 12:40 10 ml ONCE ONE Administration - CT Data CT Scan: Abdomen Time Received: 14:00 - Physician Consults Physician Consulted: Dr Coughlin Time: 14:00 Reason -: Pt condition Comment/Response: enemas and followup with barium enema Additional Consult: Dr Quintanilla Time: 14:30 Reason -: Admission Abdominal Pain HPI - General Chief Complaint: Abdominal Pain Stated Complaint: Pain from Stent Cancer Time Seen by Provider: 11/14/17 10:30 Mode of Arrival: Family Vehicle Limitations: Physical Limitations Description of Symptoms (Recalled from ER Triage Doc. by RN): left abdomen pain (colon stent site) radiating to the right side. Pt had a colon stent placed for colon cancer and is complaining of pain now. - History of Present Illness MD complaint: abdominal pain Location: LLQ Severity: severe Severity scale (1-10): 8 Quality: stabbing, aching Radiation: none Migration to: no migration Associated symptoms: nausea, vomiting - Related Data Home Medications Medication Instructions Recorded Confirmed Multivitamin with Iron [Daily 1 each PO DAILY 09/20/17 11/14/17 Multivitamin with Iron] Trazodone HCl [Desyrel 50mg tablet] 50 mg PO HS 09/20/17 11/14/17 hydroCHLOROthiazide [HCTZ 25mg 25 mg PO DAILY 09/20/17 11/14/17 tab] lamoTRIgine [Lamictal] 150 mg PO DAILY 09/20/17 11/14/17 Latanoprost [Xalatan 0.005% Ophth 1 drop OP HS 09/27/17 11/14/17 Soln 2.5mL] Capecitabine [Xeloda] 2,000 mg PO BID 10/27/17 11/14/17 Mirtazapine [Remeron 15mg tablet] 15 mg PO HS 10/27/17 11/14/17 Oxycodone HCl/Acetaminophen 1 tab PO Q4-6H PRN 10/27/17 11/14/17 [Percocet 7.5/325mg tablet] Allergies Allergy/AdvReac Type Severity Reaction Status Date / Time No Known Allergies Allergy Verified 11/09/17 10:39 [facility] History I have reviewed the patient's past medical history: Yes Medical History: Reports:: Anxiety, Cancer, Depression, Hypertension Denies:: Diabetes Mellitus Type 1, Diabetes Mellitus Type 2, Internal Pacemaker, Lung Disease, MRSA, Seizures Other Medical History: Reports: Arthritis, Cataracts, Glaucoma, Hormone Therapy , Liver Disease, Sinus Problems. Denies: Blood Transfusion Reaction Laterality Cases: Left: Other (sigmoid stent for cancer), Bilateral: Carpal Tunnel Release Other Surgeries: Yes: Colonoscopy, Hysterectomy-Total, Hysterectomy-Partial, Tubal Ligation, Other. No: Pacemaker Amputation: No Fractures: No - Social History Educational Level: Completed Grade School Smoking Status: Never smoker #Yrs smoked (if former smoker): 10 Alcohol Intake: never Alcohol Intake Frequency:: holidays/special occasions only Substance Use Type: denies use Occupational Status: retired Housing: house Household Members: family - Psychiatric History Expresses thoughts of harming self/others: None Suicide Plan Description: No Plan Pschychiatric History:: Reports:: Anxiety, Depression Family Hx:: Cancer, Heart Attack, Hypertension, Stroke ROS Obtained: Yes All systems reviewed & no additional complaints - Gastrointestinal Gastrointestingal: Reports: abdominal pain, nausea, vomiting Physical Exam - General General appearance: alert, anxious, in distress - Neck Neck exam: Present: normal inspection - Chest Chest inspection: Present: normal inspection, symmetric chest wall rise - Respiratory Respiratory exam: Present: normal lung sounds bilaterally, respiratory distress - Cardiovascular Cardiovascular exam: Present: normal rhythm, tachycardia. Absent: regular rate - Abdominal Exam Abdominal exam: Present: soft, tenderness, diminished bowel sounds. Absent: guarding, rebound, rigidity, normal bowel sounds Abdominal tenderness: Present: LLQ - Neurological Exam Neurological exam: Present: alert, oriented X3
[2017-11-14 11:17] LABS: Basophils % 0.2 % (0.1-2.0); Eosinophils # 0.2 K/mm3 (0.0-0.4); Eosinophils % 1.7 % (0.1-12.0); Hematocrit 37.9 % (37.0-47.0); Hemoglobin 12.3 g/dL (12.2-16.2); Lymphocytes # 1.2 K/mm3 (0.7-4.5); Lymphocytes % 12.6 K/mm3 (10-50); Mean Corpuscular HGB Conc 32.5 g/dL (31.8-35.4); Mean Corpuscular Hemoglobin 28.5 pg (27.0-31.2); Mean Corpuscular Volume 87.5 fl (81-99); Mean Platelet Volume 7.4 fl (7.4-10.4); Monocytes # 0.3 K/mm3 (0.1-1.0); Monocytes % 3.6 % (1.7-9.3); Neutrophils # 7.5 K/mm3 (1.8-7.8); Neutrophils % 81.8 % (37.0-80.0); Platelet Count 495 K/mm3 (142-424); Red Blood Count 4.33 M/mm3 (4.20-5.40); Red Cell Distribution Width 15.4 % (11.5-17.5); White Blood Count 9.2 K/mm3 (4.8-10.8)
[2017-11-14 11:30] LABS: Albumin Level 3.2 gm/dL (3.4-5.0); Albumin/Globulin Ratio 0.7 (1.1-1.8); Anion Gap 13.5 mEq/L (5-15); Bilirubin,Total 0.5 mg/dL (0.2-1.0); Calcium 9.7 mg/dL (8.5-10.1); Globulin 4.5 gm/dl (1.3-3.2); Potassium 3.5 mmoL/L (3.5-5.1); Total Protein,Serum 7.7 gm/dL (6.4-8.2)
--- NOTE | 2017-11-14 19:14 | History & Physical Report ---
*Admission Date: 11/14/17 *Chief complaint: Abdominal pain and vomiting *History of present illness: 67-year-old black female with history of colon cancer with liver metastases. Has undergone stent placement in the GI tract because of impending obstruction about [address] Post. She has also been undergoing chemotherapy, has just finished her second cycle of chemotherapy. She came to the emergency department because of abdominal pain, significant obstipation and some vomiting issues. CT scan revealed that the stent looked patent, but distal to the stent there was some evidence of obstruction and possibly significant obstipation. Dr. Post in GI has reviewed the CT scan and discussed the case with the patient and with me personally. He recommended admission, cautious enemas to see if this will help her symptomatology and consideration of medication for possible opioid-induced constipation given her current regimen of pain medication for her colon cancer pain. I have seen her this evening after her first enema which resulted in a lot of liquid stool and gas. She feels somewhat better. [facility] History Medical History: Reports:: Anxiety, Cancer, Depression, Hypertension Denies:: Diabetes Mellitus Type 1, Diabetes Mellitus Type 2, Internal Pacemaker, Lung Disease, MRSA, Seizures Other Medical History: Reports: Arthritis, Cataracts, Glaucoma, Hormone Therapy , Liver Disease, Sinus Problems. Denies: Blood Transfusion Reaction Laterality Cases: Left: Other, Bilateral: Carpal Tunnel Release Other Surgeries: Yes: Colonoscopy, Hysterectomy-Total, Hysterectomy-Partial, Tubal Ligation, Other. No: Pacemaker Amputation: No Fractures: No - *Social History Educational Level: Completed High School Smoking Status: Never smoker #Yrs smoked (if former smoker): 10 Alcohol Intake: never Alcohol Intake Frequency:: holidays/special occasions only Substance Use Type: denies use Occupational Status: retired Housing: house Household Members: friend(s) - Psychiatric History Expresses thoughts of harming self/others: None Suicide Plan Description: No Plan Pschychiatric History:: Reports:: Anxiety, Depression *Family Hx:: Cancer, Heart Attack, Hypertension, Stroke Review of Systems - Review of Systems Review of systems:: unable to obtain, other, pertinent systems reviewed and negative unless documented below See HPI as above Meds Home Medications Medication Instructions Recorded Confirmed Type Multivitamin with Iron [Daily 1 each PO DAILY 09/20/17 11/14/17 History Multivitamin with Iron] Trazodone HCl [Desyrel 50mg tablet] 50 mg PO HS 09/20/17 11/14/17 History hydroCHLOROthiazide [HCTZ 25mg 25 mg PO DAILY 09/20/17 11/14/17 History tab] lamoTRIgine [Lamictal] 150 mg PO DAILY 09/20/17 11/14/17 History Latanoprost [Xalatan 0.005% Ophth 1 drop OP HS 09/27/17 11/14/17 History Soln 2.5mL] Capecitabine [Xeloda] 2,000 mg PO BID 10/27/17 11/14/17 History Mirtazapine [Remeron 15mg tablet] 15 mg PO HS 10/27/17 11/14/17 History Oxycodone HCl/Acetaminophen 1 tab PO Q4-6H PRN 10/27/17 11/14/17 History [Percocet 7.5/325mg tablet] ALPRAZolam [Xanax 0.5mg tab] 0.5 mg PO BIDP PRN 11/14/17 11/14/17 History Ondansetron HCl 8 mg PO TIDP PRN 11/14/17 11/14/17 History Potassium Chloride [Klor-con 20 20 meq PO DAILY 11/14/17 11/14/17 History mEq tablet] Allergies Allergy/AdvReac Type Severity Reaction Status Date / Time No Known Allergies Allergy Verified 11/09/17 10:39 Exam Vital signs and Labs for Last 24 Hours: Temp Pulse Resp BP Pulse Ox 98.2 F 97 H 18 146/83 98 11/14/17 16:48 11/14/17 16:48 11/14/17 16:48 11/14/17 16:48 11/14/17 16:30 Laboratory Results - last 24 hr 11/14/17 10:55: WBC 9.2, RBC 4.33, Hgb 12.3, Hct 37.9, MCV 87.5, MCH 28.5, MCHC 32.5, RDW 15.4, Plt Count 495 H, MPV 7.4, Neut % (Auto) 81.8 H, Lymph % (Auto) 12.6, [place] % (Auto) 3.6, Eos % (Auto) 1.7, Baso % (Auto) 0.2, Neut # (Auto) 7.5 , Lymph # (Auto) 1.2, [place] # (Auto) 0.3, Eos # (Auto) 0.2, Baso # (Auto) 0.0 11/14/17 10:55: Sodium 137, Potassium 3.5, Chloride 98, Carbon Dioxide 29, Anion Gap 13.5, BUN 13, Creatinine 0.95, Estimated Creat Clear 61, Estimated GFR 59, Est GFR ( Amer) 71, Glucose 127 H, Calcium 9.7, Total Bilirubin 0.5, AST 21, ALT 12, Alkaline Phosphatase 156 H, Total Protein 7.7, Albumin 3.2 L, Globulin 4.5 H, Albumin/Globulin Ratio 0.7 L I & O for Last 24 hours: Intake & Output 11/12/17 11/13/17 11/14/17 11/15/17 11:59 11:59 11:59 11:59 Weight 155 lb 146 lb 1.993 oz Narrative: Patient is pleasant, talkative, appears younger than her stated age. Is in no cardiac or pulmonary distress. Abdomen is soft, significant tenderness throughout the lower quadrants bilaterally. No masses palpable. No jaundice or scleral icterus. Lungs are clear and heart rate regular. H&P: Result - Labs Labs: Short CBC 11/14/17 Range/Units 10:55 WBC 9.2 (4.8-10.8) K/mm3 Hgb 12.3 (12.2-16.2) g/dL Hct 37.9 (37.0-47.0) % Plt Count 495 H (142-424) K/mm3 BMP 11/14/17 10:55 Sodium 137 Potassium 3.5 Chloride 98 Carbon Dioxide 29 BUN 13 Creatinine 0.95 Glucose 127 H Calcium 9.7 Liver Function 11/14/17 Range/Units 10:55 Total Bilirubin 0.5 (0.2-1.0) mg/dL AST 21 (15-37) U/L ALT 12 (12-78) U/L Alkaline Phosphatase 156 H (46-116) U/L Albumin 3.2 L (3.4-5.0) gm/dL Assessment and Plan (1) Abdominal pain with vomiting Current visit: Yes Status: Acute Category: Medical Code(s): R10.9 - Unspecified abdominal pain; R11.10 - Vomiting, unspecified (2) Obstruction of descending colon Current visit: No Status: Acute Category: Medical Code(s): K56.609 - Unspecified intestinal obstruction, unspecified as to partial versus complete obstruction Trial of another milk and molasses enema tonight. Clear liquids. Hold some of her home medications. These were reviewed by me. Consider beginning agent for opioid-induced constipation tomorrow if improving.
[2017-11-15 06:48] LABS: Basophils % 0.1 % (0.1-2.0); Eosinophils # 0.2 K/mm3 (0.0-0.4); Eosinophils % 2.8 % (0.1-12.0); Hematocrit 33.8 % (37.0-47.0); Lymphocytes # 0.9 K/mm3 (0.7-4.5); Lymphocytes % 11.1 K/mm3 (10-50); Mean Corpuscular HGB Conc 31.6 g/dL (31.8-35.4); Mean Corpuscular Hemoglobin 28.1 pg (27.0-31.2); Mean Platelet Volume 7.1 fl (7.4-10.4); Monocytes # 0.3 K/mm3 (0.1-1.0); Monocytes % 3.7 % (1.7-9.3); Neutrophils # 6.6 K/mm3 (1.8-7.8); Neutrophils % 82.2 % (37.0-80.0); Platelet Count 402 K/mm3 (142-424); Red Cell Distribution Width 16.6 % (11.5-17.5)
[2017-11-15 07:04] LABS: Hemoglobin 10.9 g/dL (12.2-16.2)
[2017-11-15 07:25] LABS: Anion Gap 13.8 mEq/L (5-15); Calcium 9.3 mg/dL (8.5-10.1)
[2017-11-15 07:29] LABS: Potassium 2.8 mmoL/L (3.5-5.1)
--- NOTE | 2017-11-15 07:35 | Pharmacy Consult Notes ---
[facility] Pharmacy VTE Monitoring - Patient Demographics Admission date: 11/14/17 Report Date: 11/15/17 Time: 07:34 Allergies/Adverse Reactions: Patient Allergies No Known Allergies Allergy (Verified 11/09/17 10:39) Height: 1.65 m Weight: 66.281 kg Patient Problems: Current Active Problems Abdominal pain with vomiting (Acute) - VTE Risk Labs: VTE Related Lab Results Hgb 10.9 g/dL (12.2-16.2) L D 11/15/17 06:30 Hct 33.8 % (37.0-47.0) L 11/15/17 06:30 Plt Count 402 K/mm3 (142-424) 11/15/17 06:30 BUN 13 mg/dL (7-18) 11/15/17 06:30 Creatinine 0.95 mg/dL (0.55-1.02) 11/15/17 06:30 Estimated Creat Clear 57 mL/min (0-300) 11/15/17 06:30 VTE Score: 1 VTE Risk Level: Very Low Risk - Prophylaxis VTE Prophylaxis Ordered?: Yes Types of VTE Prophylaxis: TEDS Knee High Location of Applied Device: Bilateral Lower Extremeties - VTE Diagnosis Confirmed Treatment or plan recommended: Continue Current Treatment
--- NOTE | 2017-11-15 08:17 | Discharge Summary ---
General - General Admission date:: 11/14/17 Discharge date: 11/15/17 HPI HPI: 67-year-old black female with history of colon cancer with liver metastases. Has undergone stent placement in the GI tract because of impending obstruction about [address] Post. She has also been undergoing chemotherapy, has just finished her second cycle of chemotherapy. She came to the emergency department because of abdominal pain, significant obstipation and some vomiting issues. CT scan revealed that the stent looked patent, but distal to the stent there was some evidence of obstruction and possibly significant obstipation. Dr. Post in GI has reviewed the CT scan and discussed the case with the patient and with me personally. He recommended admission, cautious enemas to see if this will help her symptomatology and consideration of medication for possible opioid-induced constipation given her current regimen of pain medication for her colon cancer pain. I have seen her this evening after her first enema which resulted in a lot of liquid stool and gas. She feels somewhat better. Hospital Course Hospital Course: Patient was admitted, please see my admission notes for plan, the plan was executed with 2 enemas resulting in significant stool output and improved symptom management of nausea and improving abdominal pain. Patient did well through the night last night and this morning has had some liquid stool. Exam is improved nicely. Plan will be to discharge patient home with prescription for her opioid-induced constipation as noted below. She will follow-up with her primary care office next week and we will also prescribe potassium replacement therapy. Her pain control is good at home with current medications which will be continued. Objective Vital signs: Temp Pulse Resp BP Pulse Ox 99.1 F 92 H 18 114/68 96 11/15/17 07:54 11/15/17 07:54 11/15/17 07:54 11/15/17 07:54 11/15/17 07:54 Narrative: Patient is alert, pleasant. Oropharynx clear. Cardiac and lung exam are unchanged. Abdomen is much softer, much less tender. Has residual tenderness in the bilateral lower quadrants but no rebound or guarding, and normal bowel sounds. Results Labs on day of discharge: Labs from last 24 hours 11/15/17 11/15/17 11/14/17 06:30 06:30 10:55 WBC 8.0 RBC 3.80 L Hgb 10.9 L D Hct 33.8 L MCV 89.0 MCH 28.1 MCHC 31.6 L RDW 16.6 Plt Count 402 MPV 7.1 L Neut % (Auto) 82.2 H Lymph % (Auto) 11.1 [place] % (Auto) 3.7 Eos % (Auto) 2.8 Baso % (Auto) 0.1 Neut # (Auto) 6.6 Lymph # (Auto) 0.9 [place] # (Auto) 0.3 Eos # (Auto) 0.2 Baso # (Auto) 0.0 Sodium 139 137 Potassium 2.8 L* 3.5 Chloride 100 98 Carbon Dioxide 28 29 Anion Gap 13.8 13.5 BUN 13 13 Creatinine 0.95 0.95 Estimated Creat Clear 57 61 Estimated GFR 59 59 Est GFR ( Amer) 71 71 Glucose 117 H 127 H Calcium 9.3 9.7 Magnesium 1.8 Total Bilirubin 0.5 AST 21 ALT 12 Alkaline Phosphatase 156 H Total Protein 7.7 Albumin 3.2 L Globulin 4.5 H Albumin/Globulin Ratio 0.7 L 11/14/17 10:55 WBC 9.2 RBC 4.33 Hgb 12.3 Hct 37.9 MCV 87.5 MCH 28.5 MCHC 32.5 RDW 15.4 Plt Count 495 H MPV 7.4 Neut % (Auto) 81.8 H Lymph % (Auto) 12.6 [place] % (Auto) 3.6 Eos % (Auto) 1.7 Baso % (Auto) 0.2 Neut # (Auto) 7.5 Lymph # (Auto) 1.2 [place] # (Auto) 0.3 Eos # (Auto) 0.2 Baso # (Auto) 0.0 Sodium Potassium Chloride Carbon Dioxide Anion Gap BUN Creatinine Estimated Creat Clear Estimated GFR Est GFR ( Amer) Glucose Calcium Magnesium Total Bilirubin AST ALT Alkaline Phosphatase Total Protein Albumin Globulin Albumin/Globulin Ratio DS: Diagnosis - Discharge Diagnosis (1) Abdominal pain with vomiting Status: Chronic (2) Obstruction of descending colon Status: Resolved Discharge Plan - Patient Discharge Instructions ACTIVITY: Continue current activity DIET: advance to your usual diet - Follow up Plan Follow up with: Russel Hamilton MD [Staff Physician] - 1 week Disposition: Home, Self-Assisted Medications: Home Medications Medication Instructions Recorded Confirmed Type Multivitamin with Iron [Daily 1 each PO DAILY 09/20/17 11/14/17 History Multivitamin with Iron] Trazodone HCl [Desyrel 50mg tablet] 50 mg PO HS 09/20/17 11/14/17 History hydroCHLOROthiazide [HCTZ 25mg 25 mg PO DAILY 09/20/17 11/14/17 History tab] lamoTRIgine [Lamictal] 150 mg PO DAILY 09/20/17 11/14/17 History Latanoprost [Xalatan 0.005% Ophth 1 drop OP HS 09/27/17 11/14/17 History Soln 2.5mL] Capecitabine [Xeloda] 2,000 mg PO BID 10/27/17 11/14/17 History Mirtazapine [Remeron 15mg tablet] 15 mg PO HS 10/27/17 11/14/17 History Oxycodone HCl/Acetaminophen 1 tab PO Q4-6H PRN 10/27/17 11/14/17 History [Percocet 7.5/325mg tablet] ALPRAZolam [Xanax 0.5mg tab] 0.5 mg PO BIDP PRN 11/14/17 11/14/17 History Ondansetron HCl 8 mg PO TIDP PRN 11/14/17 11/14/17 History Potassium Chloride [Klor-con 20 20 meq PO DAILY 11/14/17 11/14/17 History mEq tablet] Prescriptions/Medication Reconciliation: New Naldemedine Tosylate [Symproic] 0.2 mg PO DAILY #30 tab Continue Trazodone HCl [Desyrel 50mg tablet] 50 mg PO HS Multivitamin with Iron [Daily Multivitamin with Iron] 1 each PO DAILY lamoTRIgine [Lamictal] 150 mg PO DAILY Latanoprost [Xalatan 0.005% Ophth Soln 2.5mL] 1 drop OP HS Mirtazapine [Remeron 15mg tablet] 15 mg PO HS Oxycodone HCl/Acetaminophen [Percocet 7.5/325mg tablet] 1 tab PO Q4-6H PRN PRN Reason: PAIN Capecitabine [Xeloda] 2,000 mg PO BID Potassium Chloride [Klor-con 20 mEq tablet] 20 meq PO DAILY Ondansetron HCl 8 mg PO TIDP PRN PRN Reason: Nausea And Vomiting ALPRAZolam [Xanax 0.5mg tab] 0.5 mg PO BIDP PRN PRN Reason: Anxiety Discontinued hydroCHLOROthiazide [HCTZ 25mg tab] 25 mg PO DAILY
== END 2017-11-15 09:00 | disposition home or self-care (01) ==
LOC: ER 09:51 → 2ND 14:34
PROVIDERS: ADMIT Internal Medicine Adolescent Medicine; ATTEND Internal Medicine Adolescent Medicine
CPT/HCPCS: 36415; 74177; 80048; 80053; 83735; 85025; 96365; 96375; 99282; J2405; Q9967

== ENCOUNTER 2017-11-23 08:25 | Outpatient (CLI) | payer MEDICARE, OTHER, SELFPAY ==
[2017-11-23] VITALS (11 sets, daily range): BP systolic 91–123; BP diastolic 44–78; PULSE 78–84; RESP 16–18; TEMP 36.3–36.4; BMI 24.1
[2017-11-23 09:04] LABS: Basophils # 0.1 K/mm3 (0-0.2); Basophils % 0.9 % (0.1-2.0); Eosinophils # 0.3 K/mm3 (0.0-0.4); Eosinophils % 4.3 % (0.1-12.0); Hematocrit 36.3 % (37.0-47.0); Hemoglobin 11.2 g/dL (12.2-16.2); Lymphocytes # 1.6 K/mm3 (0.7-4.5); Mean Corpuscular HGB Conc 30.9 g/dL (31.8-35.4); Mean Corpuscular Hemoglobin 28.7 pg (27.0-31.2); Mean Corpuscular Volume 92.7 fl (81-99); Mean Platelet Volume 7.1 fl (7.4-10.4); Monocytes # 0.4 K/mm3 (0.1-1.0); Neutrophils # 4.6 K/mm3 (1.8-7.8); Neutrophils % 65.9 % (37.0-80.0); Platelet Count 351 K/mm3 (142-424); Red Blood Count 3.91 M/mm3 (4.20-5.40); Red Cell Distribution Width 17.4 % (11.5-17.5); White Blood Count 7.1 K/mm3 (4.8-10.8)
[2017-11-23 09:21] LABS: Alanine Aminotransferase 17 U/L (12-78); Albumin/Globulin Ratio 0.7 (1.1-1.8); Alkaline Phosphatase 136 U/L (46-116); Anion Gap 8.9 mEq/L (5-15); Aspartate Amino Transferase 17 U/L (15-37); Bilirubin,Total 0.4 mg/dL (0.2-1.0); Blood Urea Nitrogen 10 mg/dL (7-18); Calcium 9.1 mg/dL (8.5-10.1); Carbon Dioxide 27 mmol/L (21.0-32.0); Chloride 105 mmol/L (98-107); Creatinine Clearance Estimated 55 mL/min (0-300); Creatinine,Serum 1.04 mg/dL (0.55-1.02); Estimated Glomerular Filt Rate 53 ml/min (>60); GFR (African American) 64 ML/MIN (>60); Globulin 4.2 gm/dl (1.3-3.2); Glucose 103 mg/dL (74-106); Potassium 3.9 mmoL/L (3.5-5.1); Sodium 137 mmol/L (136-145); Total Protein,Serum 7.2 gm/dL (6.4-8.2)
[2017-11-23 10:09] LABS: Microscopic, Urine URINE MICROSCOPIC (MICROSCOPIC)
[2017-11-23 10:13] LABS: Appearance,Urine SL CLOUDY (Clear); Blood, Urine TRACE-L (Negative); Glucose,Urine (UA) Negative (Negative); Ketones,Urine TRACE (Negative); Leukocyte Esterase,Urine TRACE (Negative); Nitrate,Urine Negative (Negative); Protein,Urine 2+ (Negative); Specific Gravity, Urine >= 1.030 (1.005-1.030)
[2017-11-23 10:29] LABS: Bilirubin,Urine Negative (Negative); Color,Urine Dark Yellow (Yellow); WBC,Urine Occasional #/hpf (0-3)
[2017-11-23 10:30] LABS: Bacteria,Urine 2+ /lpf; Mucus,Urine 4+ /lpf; RBC,Urine Occasional #/hpf (0-3); Squamous Epithelial Cell,Urine Occasional #/hpf (0-5)
== END 2017-11-23 14:10 | disposition home or self-care (01) ==
LOC: INF 08:45
PROVIDERS: Family Provider Family Medicine; PCP Family Medicine; Visit Provider Internal Medicine
DX: Z51.11 Encounter for antineoplastic chemotherapy (principal); C18.9 Malignant neoplasm of colon, unspecified; R82.90 Unspecified abnormal findings in urine
CPT/HCPCS: 80053; 81001; 85025; 87086; 96413; 96415; 96417; J1642; J9035; J9206; Q0166

== ENCOUNTER 2017-12-07 10:10 | Outpatient (CLI) | payer MEDICARE, OTHER, SELFPAY ==
[2017-12-07] VITALS (7 sets, daily range): BP systolic 118–128; BP diastolic 70–74; PULSE 68–78; RESP 20; TEMP 36.3–37.1; O2SAT 96; BMI 24.6
[2017-12-07 10:47] LABS: Basophils % 0.9 % (0.1-2.0); Eosinophils # 0.4 K/mm3 (0.0-0.4); Eosinophils % 7.9 % (0.1-12.0); Hematocrit 30.5 % (37.0-47.0); Hemoglobin 9.4 g/dL (12.2-16.2); Lymphocytes # 1.3 K/mm3 (0.7-4.5); Mean Corpuscular HGB Conc 30.8 g/dL (31.8-35.4); Mean Corpuscular Hemoglobin 29.2 pg (27.0-31.2); Mean Platelet Volume 7.5 fl (7.4-10.4); Monocytes # 0.2 K/mm3 (0.1-1.0); Monocytes % 3.1 % (1.7-9.3); Neutrophils # 3.2 K/mm3 (1.8-7.8); Neutrophils % 62.3 % (37.0-80.0); Platelet Count 462 K/mm3 (142-424); Red Blood Count 3.21 M/mm3 (4.20-5.40); White Blood Count 5.2 K/mm3 (4.8-10.8)
[2017-12-07 11:01] LABS: Alanine Aminotransferase 13 U/L (12-78); Albumin Level 2.5 gm/dL (3.4-5.0); Albumin/Globulin Ratio 0.6 (1.1-1.8); Alkaline Phosphatase 112 U/L (46-116); Anion Gap 11.4 mEq/L (5-15); Aspartate Amino Transferase 15 U/L (15-37); Bilirubin,Total 0.2 mg/dL (0.2-1.0); Blood Urea Nitrogen 5 mg/dL (7-18); Calcium 7.2 mg/dL (8.5-10.1); Carbon Dioxide 26 mmol/L (21.0-32.0); Chloride 107 mmol/L (98-107); Creatinine Clearance Estimated 58 mL/min (0-300); Creatinine,Serum 0.97 mg/dL (0.55-1.02); Estimated Glomerular Filt Rate 57 ml/min (>60); GFR (African American) 69 ML/MIN (>60); Globulin 3.9 gm/dl (1.3-3.2); Glucose 105 mg/dL (74-106); Potassium 4.4 mmoL/L (3.5-5.1); Sodium 140 mmol/L (136-145); Total Protein,Serum 6.4 gm/dL (6.4-8.2)
[2017-12-07 11:03] LABS: Microscopic, Urine URINE MICROSCOPIC (MICROSCOPIC)
[2017-12-07 11:06] LABS: Appearance,Urine CLEAR (Clear); Bilirubin,Urine Negative (Negative); Blood, Urine TRACE-L (Negative); Color,Urine YELLOW (Yellow); Glucose,Urine (UA) Negative (Negative); Ketones,Urine Negative (Negative); Leukocyte Esterase,Urine Negative (Negative); Nitrate,Urine Negative (Negative); Protein,Urine TRACE (Negative); Specific Gravity, Urine >= 1.030 (1.005-1.030); Urobilinogen,Urine 0.2 EU/dl (0.2)
[2017-12-07 11:15] LABS: Bacteria,Urine 1+ /lpf; Mucus,Urine 2+ /lpf; RBC,Urine Occasional #/hpf (0-3); WBC,Urine Occasional #/hpf (0-3)
== END 2017-12-07 14:55 | disposition home or self-care (01) ==
LOC: INF 10:20
PROVIDERS: Family Provider Family Medicine; PCP Family Medicine; Visit Provider Internal Medicine
DX: Z51.11 Encounter for antineoplastic chemotherapy (principal); C18.9 Malignant neoplasm of colon, unspecified
CPT/HCPCS: 80053; 81001; 85025; 96413; 96415; 96417; J9035; J9206; Q0166

== ENCOUNTER 2017-12-15 08:52 | Outpatient (CLI) | payer MEDICARE, OTHER, SELFPAY ==
--- NOTE | 2017-12-15 08:56 | CT_ITS ---
CT chest w con HISTORY: ITS.REASON: SIGMOID COLON CA colon cancer follow-up. Metastatic liver disease. No ORDERING PHYSICIAN: Binh Reyes MD PATIENT AGE: 67 years COMPARISON: Technique: Axial images obtained. Sagittal and coronal reformatted images are also generated and reviewed. All CT scans at the facility use one or more dose reduction, viz: automated exposure control; ma/kV adjustment per patient size (including targeted exams where dose is matched to indication; i.e. head); or iterative reconstruction technique. FINDINGS: Lungs. On previous study there may been some scant pleural fluid or thickening at the lung bases which is since resolved. . Marked regression of the 2 largest nodules right lower lobe: Most notable was a 14 mm nodule just posterior to the right david . This is markedly decreased in size measuring now measuring 6.5 mm axial image 31. The second nodule was slightly inferior to this & Just to the right of the spine. This measured 10 mm.- This nodule no longer evident. Would anticipated to be seen on axial slice 37 today, with only some residual scant linear scarring now noted. There are other stable tiny nonspecific nodules which can be followed.: RUL tiny 3 mm subpleural nodule axial slice 21 appear stable. RUL more anteriorly at RUL Small 4 mm nodule pleural,,/subpleural nodule is stable (axial slice 24.). RML nodule. Axial slice 37. Vague 3.6 mm nodule. Stable. Left lung: RAMY : 3.7 mm mm subpleural nodule axial slice 33 periphery of the RAMY/at left midlung. LLL: Posterior left lung base. Axial image 46. Small 4.3 mm subpleural nodule. Not definitely seen previously September 2017 study but I do see it on a August 2017 CT abdomen study which includes lung bases. Thus will consider stable as well LLL axial image 42. Small less than 4 mm pleural-based nodule. I believe stable. Mediastinum. No mediastinal adenopathy. A question slight hazy appearance at the mediastinum. Part of this is due to motion artifact on today's image moderate size nodes precarinal region I believe stable. 10 mm short axis. Warrants follow-up. Heart normal size no pericardial effusion. T-spine. No lesions evident. Ribs. No evident, obvious lesions on survey. Sternum unremarkable. The patient does have a new Port-A-Cath overlying the left chest (2 views for today's contrast administration. Thyroid. Right lobe larger than left. Stable. .*Fullness at the inferior left sternocleidomastoid thinning towards the head of the clavicle on left was seen previously, less evident today. I would direct physical exam to this region IMPRESSION: 1.. Marked regression of the 2 most prominent lung nodules at the RLL since CT chest study September 2017 . No significant new findings at lung 2. Scattered tiny pleural and subpleural nodular densities bilaterally. Suspect likely previous pre-existing benign nodular densities. These can be followed 3. New Port-A-Cath overlying left chest.
--- NOTE | 2017-12-15 08:56 | CT_ITS ---
CT abdomen pelvis w con INDICATION: ITS.REASON: SIGMOID COLON CA ORDERING PHYSICIAN: Binh Reyes MD PATIENT AGE: 67 years COMPARISON: CT 11/14/2017 abdomen/pelvis PROCEDURE: Oral Contrast: Was utilized IV Contrast: 35 cc Isovue-370. . Imaging performed 60-70 seconds post contrast then with 5 minute delay TECHNIQUE: Axial images are obtained performed following oral and IV contrast. Sagittal and coronal reformatted images are reviewed as well. All CT scans at the facility use one or more dose reduction, viz: automated exposure control; ma/kV adjustment per patient size (including targeted exams where dose is matched to indication; i.e. head); or iterative reconstruction technique. FINDINGS: LIVER. Multiple low-density lesions at the liver are again observed but have shown evident slight regression since previous study For example a lesion at the left lobe today measures up to 3.4 cm maximally. Previously this same lesion measured 4.4 cm maximally A well-defined round lesion in the right lobe measures 2 cm today. Previously measured 3 cm. (Axial image 17). The largest lesion seen at the inferior margin of the right lobe measuring 6 cm today and previously measured 8 cm height. Multiple Other liver lesions with similar improvement/ regression. , Notable -- Pancreas, kidneys, adrenals, spleen appear stable and unremarkable. GI tract. We again see descending colon stent, in place. . Mild thickening & density & minimal stranding along medial wall and within the adjacent paracolic fat medial to this area is less evident today than previous study. Suspect subtle interval improvement in this region as well. . Prominent stool is seen at the right colon reflecting moderate constipation right colon. This is more pronounced than previous However there is minimal stool at the left colon and region of stent. all. Small Bowel appears normal in caliber. Oral contrast is passed through the small bowel and just now passing through the terminal ileum into the right colon. Previous appendectomy No significant retroperitoneal adenopathy. A few small scattered nodes on appears stable if not recommend a smaller. There unimpressive but should be followed. No mesenteric adenopathy. No pelvic adenopathy. Osseous structures. No remarkable lesions.. No metastatic disease Subtle ill-defined density reflecting bruising or injections involving the buttocks bilaterally. Clinical correlation required. note: This study was dictated with a voice-recognition system. There may be typographical error is related to such. If they are significant please notify us for corrections IMPRESSION 1. Definite notable significant Improvement, & regression of multiple liver metastatic lesions since previous study 11/14/2017 2.. Stent within Descending colon is again noted and stable position. Mild wall thickening throughout this region but with suggestion slightly less density along its medial margin as well as perhaps subtle decreased density pericolic region,-suggestive of scant improvement in this region as well. 3. Incidental observation Vague areas hazy density at subcutaneous fat of the buttocks. May reflect injections or bruising here.? Possible minimal subcutaneous edema diffusely seen.. Is patient hypoproteinemic?
== END 2017-12-15 09:50 | disposition home or self-care (01) ==
LOC: INF 08:52
PROVIDERS: Family Provider Family Medicine; PCP Family Medicine; Visit Provider Internal Medicine
DX: Z03.89 Encounter for observation for other suspected diseases and conditions ruled out (principal); C18.9 Malignant neoplasm of colon, unspecified
CPT/HCPCS: 71260; 74177; J1642; Q9967

== ENCOUNTER → 2018-02-16 11:49 | Outpatient (CLI) | payer MEDICARE, OTHER, SELFPAY ==
--- NOTE | 2018-02-16 11:59 | XR_ITS ---
XR chest 2V HISTORY: Follow-up: Cancer ITS.REASON: COLON CA ORDERING PHYSICIAN: Ana Cristina Velez MD PATIENT AGE: 67 years COMPARISON: 10/12/2017, 12/15/2017 FINDINGS: The cardiomediastinal silhouette and pulmonary vascularity are within normal limits. No lobar consolidation or collapse is evident. Recent CT scan demonstrated multiple small pulmonary nodular densities which are mostly below limits of resolution on the radiograph. There is a faint opacity overlying the right midlung at 5 mm and the left midlung at 7 mm. These could represent summation artifact or small pulmonary nodules. MediPort catheter is present from left subclavian approach in good position.. No acute bony abnormalities. IMPRESSION: 1. Faint nodular opacities in the right mid and left mid lung may be related to small nodular densities that were noted on previous CT scan. Most of the nodules seen on the prior CT scan are below limits of resolution on the radiograph. 2. Otherwise negative chest.
[2018-02-16 12:59] LABS: Basophils # 0.1 K/mm3 (0-0.2); Basophils % 0.8 % (0.1-2.0); Eosinophils # 0.4 K/mm3 (0.0-0.4); Eosinophils % 6.4 % (0.1-12.0); Hematocrit 36.7 % (37.0-47.0); Hemoglobin 11.7 g/dL (12.2-16.2); Lymphocytes # 1.6 K/mm3 (0.7-4.5); Lymphocytes % 25.5 K/mm3 (10-50); Mean Corpuscular HGB Conc 31.7 g/dL (31.8-35.4); Mean Corpuscular Hemoglobin 29.9 pg (27.0-31.2); Mean Corpuscular Volume 94.1 fl (81-99); Mean Platelet Volume 8.2 fl (7.4-10.4); Monocytes # 0.3 K/mm3 (0.1-1.0); Monocytes % 5.1 % (1.7-9.3); Neutrophils % 62.3 % (37.0-80.0); Platelet Count 338 K/mm3 (142-424); Red Cell Distribution Width 15.2 % (11.5-17.5); White Blood Count 6.4 K/mm3 (4.8-10.8)
[2018-02-16 13:20] LABS: Alanine Aminotransferase 26 U/L (12-78); Albumin Level 3.4 gm/dL (3.4-5.0); Albumin/Globulin Ratio 0.8 (1.1-1.8); Alkaline Phosphatase 242 U/L (46-116); Anion Gap 10.5 mEq/L (5-15); Aspartate Amino Transferase 53 U/L (15-37); Bilirubin,Total 0.3 mg/dL (0.2-1.0); Blood Urea Nitrogen 11 mg/dL (7-18); Calcium 9.6 mg/dL (8.5-10.1); Carbon Dioxide 32 mmol/L (21.0-32.0); Chloride 104 mmol/L (98-107); Estimated Glomerular Filt Rate 62 ml/min (>60); GFR (African American) 76 ML/MIN (>60); Globulin 4.2 gm/dl (1.3-3.2); Glucose 108 mg/dL (74-106); Potassium 4.5 mmoL/L (3.5-5.1); Sodium 142 mmol/L (136-145); Total Protein,Serum 7.6 gm/dL (6.4-8.2)
== END ==
PROVIDERS: PCP Family Medicine; Visit Provider Internal Medicine Medical Oncology
DX: C18.9 Malignant neoplasm of colon, unspecified (principal)
CPT/HCPCS: 36415; 71046; 80053; 85025

== ENCOUNTER → 2018-03-03 09:32 | Outpatient (CLI) | payer MEDICARE, OTHER, SELFPAY ==
--- NOTE | 2018-03-03 | CT_ITS ---
CT chest w con HISTORY: Follow-up metastatic colon cancer ITS.REASON: COLON CANCER ORDERING PHYSICIAN: Ana Cristina Velez MD PATIENT AGE: 67 years COMPARISON: 12/15/2017 TECHNIQUE: Axial images obtained following the administration of 75 mL of Isovue 370 . Sagittal, and coronal reformatted images are also generated and reviewed. All CT scans at the facility use one or more dose reduction, viz: automated exposure control, ma/kV adjustment per patient size (including targeted exams where dose is matched to indication, i.e. head), or iterative reconstruction technique. FINDINGS: Left subclavian Mediport catheter is in place. No mediastinal or hilar mass. Normal heart size without evidence of pericardial thickening. There is a 1 cm nodule in the infrahilar region on the right within the anterior aspect of the right lower lobe. This appears slightly larger than when compared to the previous exam measuring 10 x 11 x 11 mm previously measuring 8 x 10 x 8 mm. A 4 mm nodule in the right middle lobe is unchanged. Scattered subpleural nodules are present on the right unchanged. A small nodule is present in the right lower lobe medially measuring approximate 5 mm slightly more prominent from the most recent exam of smaller when compared to 5-18. Subpleural nodules present in the left lower lobe 4 mm unchanged. No new nodules are identified. No effusions or infiltrates. There are degenerative changes in the thoracic spine. No focal bony destructive process evident. No sternal lesions apparent IMPRESSION: 1. Previously noted 2 pulmonary nodules in the right lower lobe are very slightly more prominent when compared to the previous exam. These nodules are somewhat more dense and very slightly larger. 2. No change multiple subpleural nodules in both lungs. No new nodules evident.
--- NOTE | 2018-03-03 | CT_ITS ---
CT abdomen pelvis w con CLINICAL INDICATION: Follow-up metastatic colon cancer ORDERING PHYSICIAN: Ana Cristina Velez MD PATIENT AGE: 67 years COMPARISON: 12/15/2017 TECHNIQUE: Axial images obtained with sagittal and coronal reformats. All CT scans at the facility use one or more dose reduction, viz: automated exposure control, ma/kV adjustment per patient size (including targeted exams where dose is matched to indication, i.e. head), or iterative reconstruction technique. PROCEDURE: Oral Contrast: Redicat IV Contrast: 75 mL's of Isovue-370 performed in conjunction with the chest CT. FINDINGS: Multiple hypoattenuating liver lesions are noted in both lobes of the liver consistent with diffuse hepatic metastasis. These have increased in size and number when compared to the previous exam. These have moderately increased in size. The largest lesion is in the right hepatic lobe inferiorly measuring 6.5 x 5.7 x 5.9 cm previously 6 x 6 x 5 cm. There is some minimal perihepatic fluid adjacent to this lesion laterally. Another lesion in the right hepatic lobe measures 4.8 x 5 cm and was previously 2.6 x 2.6 cm. The largest lesion in the left hepatic lobe measures 4.8 x 4.3 cm and was previously 3.4 x 2.4 cm. A lesion in the hepatic dome measures 4.9 x 4.4 cm previously measuring 2.8 x 2.1 cm. There is a lesion in the portal area in the caudate lobe which measures 3 x 2 cm. This is causing moderate compression upon the superior aspect of the portal vein. There is an additional lesion along the posterior and inferior aspect of the portal vein measuring 2 cm also causing some compression upon the portal vein. The spleen, pancreas, and adrenal glands are unremarkable. No hydronephrosis. No renal or ureteral calculus. There is a small left renal cyst at 13 mm. There is a moderate amount of retained colonic feces. Anastomosis is noted at the sigmoid colon region. There is stranding of the pelvic fat with some increased soft tissue density along the left side wall possibly related to residual ovarian tissue or adenopathy. Patient has had an interval left hemicolectomy with anastomosis in the sigmoid region. No intestinal obstruction or free air is evident. There are severe osteoarthritic changes of the left hip with subarticular cystic changes. No bony destructive process. IMPRESSION: 1. Interval progression of hepatic metastasis. Metastatic lesions are present in the portal area causing moderate compression of the portal vein. 2. Interval left hemicolectomy. There is some soft tissue density the left pelvic region which could be related to adenopathy or ovarian tissue. There is mild stranding of the fat in the pelvis which could be postsurgical. There is a moderate amount retained colonic feces
[2018-03-03 10:24] LABS: Blood Urea Nitrogen 11 mg/dL (7-18); Creatinine,Serum 0.79 mg/dL (0.55-1.02); Estimated Glomerular Filt Rate 73 ml/min (>60); GFR (African American) 88 ML/MIN (>60)
== END ==
PROVIDERS: Family Provider Family Medicine; PCP Family Medicine; Visit Provider Internal Medicine Medical Oncology
DX: C18.9 Malignant neoplasm of colon, unspecified (principal)
CPT/HCPCS: 36415; 71260; 74177; 82565; 84520; Q9967

== ENCOUNTER 2018-03-14 11:15 | Outpatient (CLI) | payer MEDICARE, OTHER, SELFPAY ==
[2018-03-14 11:25] VITALS: BMI 22.4
[2018-03-14 11:34] LABS: Microscopic, Urine URINE MICROSCOPIC (MICROSCOPIC)
[2018-03-14 11:36] LABS: Appearance,Urine CLOUDY (Clear); Blood, Urine 1+ (Negative); Color,Urine DK YELLOW (Yellow); Glucose,Urine (UA) Negative (Negative); Ketones,Urine TRACE (Negative); Leukocyte Esterase,Urine TRACE (Negative); Nitrate,Urine Negative (Negative); PH,Urine 5.5 (5.0-8.5); Protein,Urine 1+ (Negative); Specific Gravity, Urine >= 1.030 (1.005-1.030)
[2018-03-14 11:46] LABS: Bilirubin,Urine Negative (Negative)
[2018-03-14 11:52] LABS: Bacteria,Urine 1+ /lpf
[2018-03-14 12:08] LABS: Basophils # 0.1 K/mm3 (0-0.2); Basophils % 0.8 % (0.1-2.0); Eosinophils # 0.4 K/mm3 (0.0-0.4); Eosinophils % 4.5 % (0.1-12.0); Hematocrit 33.8 % (37.0-47.0); Hemoglobin 10.7 g/dL (12.2-16.2); Lymphocytes # 1.5 K/mm3 (0.7-4.5); Lymphocytes % 18.6 K/mm3 (10-50); Mean Corpuscular HGB Conc 31.5 g/dL (31.8-35.4); Mean Corpuscular Hemoglobin 27.6 pg (27.0-31.2); Mean Corpuscular Volume 87.4 fl (81-99); Mean Platelet Volume 7.1 fl (7.4-10.4); Monocytes # 0.5 K/mm3 (0.1-1.0); Monocytes % 5.4 % (1.7-9.3); Neutrophils # 5.9 K/mm3 (1.8-7.8); Neutrophils % 70.7 % (37.0-80.0); Platelet Count 560 K/mm3 (142-424); Red Blood Count 3.87 M/mm3 (4.20-5.40); Red Cell Distribution Width 14.9 % (11.5-17.5); White Blood Count 8.3 K/mm3 (4.8-10.8)
[2018-03-14 12:18] LABS: Alanine Aminotransferase 55 U/L (12-78); Albumin Level 2.9 gm/dL (3.4-5.0); Albumin/Globulin Ratio 0.6 (1.1-1.8); Anion Gap 11.7 mEq/L (5-15); Aspartate Amino Transferase 91 U/L (15-37); Bilirubin,Total 0.4 mg/dL (0.2-1.0); Blood Urea Nitrogen 12 mg/dL (7-18); Calcium 9.6 mg/dL (8.5-10.1); Carbon Dioxide 30 mmol/L (21.0-32.0); Chloride 99 mmol/L (98-107); Creatinine Clearance Estimated 49 mL/min (0-300); Creatinine,Serum 1.08 mg/dL (0.55-1.02); Estimated Glomerular Filt Rate 51 ml/min (>60); GFR (African American) 61 ML/MIN (>60); Globulin 5.2 gm/dl (1.3-3.2); Glucose 117 mg/dL (74-106); Potassium 3.7 mmoL/L (3.5-5.1); Sodium 137 mmol/L (136-145); Total Protein,Serum 8.1 gm/dL (6.4-8.2)
[2018-03-14 12:48] LABS: Alkaline Phosphatase 565 U/L (46-116)
[2018-03-14 13:25] VITALS: BP 123/72; PULSE 70; RESP 20; TEMP 36.9; O2SAT 95
[2018-03-14 14:00] VITALS: BP 118/60; PULSE 70; RESP 20; TEMP 36.9; O2SAT 96
[2018-03-14 14:30] VITALS: BP 122/70; PULSE 74; RESP 20; TEMP 36.9; O2SAT 96
[2018-03-14 15:00] VITALS: BP 168/74; PULSE 75; RESP 20; TEMP 36.9; O2SAT 96
[2018-03-14 15:20] VITALS: BP 165/70; PULSE 68; RESP 20; TEMP 36.9; O2SAT 95
[2018-03-14 16:00] VITALS: BP 125/74; PULSE 76; RESP 20; TEMP 36.9; O2SAT 96
== END 2018-03-14 16:00 | disposition home or self-care (01) ==
LOC: INF 11:22
PROVIDERS: Family Provider Family Medicine; PCP Family Medicine; Visit Provider Internal Medicine Medical Oncology
DX: Z51.11 Encounter for antineoplastic chemotherapy (principal); C18.9 Malignant neoplasm of colon, unspecified
CPT/HCPCS: 80053; 81001; 85025; 96413; 96415; 96417; J9035; J9206; Q0166

== ENCOUNTER 2018-04-07 11:33 | Outpatient (CLI) | payer MEDICARE, OTHER, SELFPAY ==
[2018-04-07 11:21] VITALS: BMI 23.3
[2018-04-07 11:58] LABS: Basophils # 0.1 K/mm3 (0-0.2); Basophils % 0.8 % (0.1-2.0); Eosinophils # 0.4 K/mm3 (0.0-0.4); Eosinophils % 4.3 % (0.1-12.0); Hematocrit 34.1 % (37.0-47.0); Hemoglobin 10.6 g/dL (12.2-16.2); Lymphocytes # 1.4 K/mm3 (0.7-4.5); Lymphocytes % 16.6 % (10-50); Mean Corpuscular HGB Conc 31.2 g/dL (31.8-35.4); Mean Corpuscular Hemoglobin 26.7 pg (27.0-31.2); Mean Corpuscular Volume 85.5 fl (81-99); Mean Platelet Volume 7.5 fl (7.4-10.4); Monocytes # 0.4 K/mm3 (0.1-1.0); Monocytes % 4.5 % (1.7-9.3); Neutrophils # 6.3 K/mm3 (1.8-7.8); Neutrophils % 73.9 % (37.0-80.0); Platelet Count 539 K/mm3 (142-424); Red Blood Count 3.99 M/mm3 (4.20-5.40); Red Cell Distribution Width 15.7 % (11.5-17.5); White Blood Count 8.6 K/mm3 (4.8-10.8)
[2018-04-07 12:07] LABS: Alanine Aminotransferase 44 U/L (12-78); Albumin Level 2.7 gm/dL (3.4-5.0); Albumin/Globulin Ratio 0.5 (1.1-1.8); Alkaline Phosphatase 723 U/L (46-116); Anion Gap 13.4 mEq/L (5-15); Aspartate Amino Transferase 113 U/L (15-37); Bilirubin,Total 0.5 mg/dL (0.2-1.0); Blood Urea Nitrogen 11 mg/dL (7-18); Calcium 9.6 mg/dL (8.5-10.1); Carbon Dioxide 29 mmol/L (21.0-32.0); Chloride 97 mmol/L (98-107); Creatinine Clearance Estimated 54 mL/min (50-200); Creatinine,Serum 1.01 mg/dL (0.55-1.02); Estimated Glomerular Filt Rate 55 ml/min (>60); GFR (African American) 66 ML/MIN (>60); Globulin 5.4 gm/dl (1.3-3.2); Glucose 102 mg/dL (74-106); Potassium 3.4 mmoL/L (3.5-5.1); Sodium 136 mmol/L (136-145); Total Protein,Serum 8.1 gm/dL (6.4-8.2)
[2018-04-07 13:10] VITALS: BP 112/63; PULSE 68; RESP 20; TEMP 36.9; O2SAT 96
[2018-04-07 13:40] VITALS: BP 109/68; PULSE 68; RESP 20; TEMP 36.9; O2SAT 96
[2018-04-07 14:10] VITALS: BP 121/63; PULSE 68; RESP 20; TEMP 36.9; O2SAT 96
[2018-04-07 14:40] VITALS: BP 121/63; PULSE 72; RESP 20; TEMP 36.9; O2SAT 96
[2018-04-07 14:50] VITALS: BP 142/78; PULSE 68; RESP 20; TEMP 36.9; O2SAT 96
[2018-04-07 15:30] VITALS: BP 117/65; PULSE 68; RESP 20; TEMP 36.9; O2SAT 96
--- NOTE | 2018-04-07 15:39 | [facility].PMCON ---
Assessment and Plan (1) Abdominal pain with vomiting Current visit: No Status: Chronic Category: Medical Code(s): R10.9 - Unspecified abdominal pain; R11.10 - Vomiting, unspecified - Assessment and plan all Dx Assessment and Plan for all problems:: I have talked to her about intrathecal therapy. Given the fact that she her pain is not well controlled with her current medication regimen I believe she is a candidate for intrathecal therapy. I presented the information to her. We will see her next week to answer any questions. In the meantime we will seek approval and obtain a psychological evaluation. Given this patient's pain symptoms and metastatic colon carcinoma I believe she is a candidate for intrathecal pump therapy. We will seek approval for implant and forego a trial since she has active cancer and is undergoing treatment. HPI - Data of Consult Patient: new to practice Consult date: 04/07/18 Requesting Physician: Ana Cristina Velez MD - Consult Narrative Reason for consult: Increased pain with colon carcinoma History of present illness: Ms. Gabriel is a 67 year old female who has a recent diagnosis of metastatic colon carcinoma. She is recently had surgery. She is months out from her diagnosis and she is currently undergoing chemotherapy. She has significant low back pain, pelvic pain and pain in bilateral shoulders. She does have metastasis to the liver. She is currently on oral narcotics which is not controlling her pain. We were consulted to evaluate her for possible pain pump to help better control her pain. CC: Ana Cristina Velez MD [facility] History I have reviewed the patient's past medical history: Yes Medical History: Reports:: Anxiety, Cancer, Depression, Hypertension Denies:: Diabetes Mellitus Type 1, Diabetes Mellitus Type 2, Internal Pacemaker, Lung Disease, MRSA, Seizures Other Medical History: Reports: Arthritis, Cataracts, Glaucoma, Hormone Therapy, Liver Disease, Sinus Problems. Denies: Blood Transfusion Reaction Laterality Cases: Left: Other, Bilateral: Carpal Tunnel Release Other Surgeries: Yes: Colonoscopy, Hysterectomy-Total, Hysterectomy-Partial, Tubal Ligation, Other. No: Pacemaker Amputation: No Fractures: No - *Social History Smoking Status: Never smoker #Yrs smoked (if former smoker): 10 Alcohol Intake: current Alcohol Intake Frequency:: holidays/special occasions only Substance Use Type: denies use Occupational Status: retired Housing: house Household Members: friend(s) - Psychiatric History Pschychiatric History:: Reports:: Anxiety, Depression *Family Hx:: Cancer, Heart Attack, Hypertension, Stroke Review of Systems - Review of Systems Review of systems:: pertinent systems reviewed and negative unless documented below - *Gastrointestinal Reports abdominal pain, Reports belching, Reports nausea - *Musculoskeletal Reports joint pain, Reports body aches, Reports stiffness Meds Home Medications Medication Instructions Recorded Confirmed Type Multivitamin with Iron [Daily 1 each PO DAILY 09/20/17 03/30/18 History Multivitamin with Iron] Trazodone HCl [Desyrel 50mg tablet] 50 mg PO HS 09/20/17 03/30/18 History lamoTRIgine [Lamictal] 150 mg PO DAILY 09/20/17 03/30/18 History Latanoprost [Xalatan 0.005% Ophth 1 drp OP HS 09/27/17 03/30/18 History Soln 2.5mL] Oxycodone HCl/Acetaminophen 1 tab PO Q4-6H PRN 10/27/17 03/30/18 History [Percocet 7.5/325mg tablet] ALPRAZolam [Xanax 0.5mg tab] 0.5 mg PO BIDP PRN 11/14/17 03/30/18 History Ondansetron HCl [Ondansetron 8mg 8 mg PO TIDP PRN 11/14/17 03/30/18 History Tablet] Potassium Chloride [Klor-con 20 20 meq PO DAILY 11/14/17 03/30/18 History mEq tablet] Capecitabine [Xeloda] 1,500 mg PO BID 11/23/17 03/30/18 History Mirtazapine [Remeron 15mg tablet] 30 mg PO HS 11/23/17 03/30/18 History Naldemedine Tosylate [Symproic] 0.2 mg PO DAILY 11/23/17 03/30/18 History Polyethylene Glycol 3350 [Miralax 17
--- NOTE | 2018-04-07 15:43 | P.CONS_ITS ---
Assessment and Plan (1) Abdominal pain with vomiting Current visit: No Status: Chronic Category: Medical Code(s): R10.9 - Unspecified abdominal pain; R11.10 - Vomiting, unspecified - Assessment and plan all Dx Assessment and Plan for all problems:: I have talked to her about intrathecal therapy. Given the fact that she her pain is not well controlled with her current medication regimen I believe she is a candidate for intrathecal therapy. I presented the information to her. We will see her next week to answer any questions. In the meantime we will seek approval and obtain a psychological evaluation. Given this patient's pain symptoms and metastatic colon carcinoma I believe she is a candidate for intrathecal pump therapy. We will seek approval for implant and forego a trial since she has active cancer and is undergoing treatment. HPI - Data of Consult Patient: new to practice Consult date: 04/07/18 Requesting Physician: Ana Cristina Velez MD - Consult Narrative Reason for consult: Increased pain with colon carcinoma History of present illness: Ms. Gabriel is a 67 year old female who has a recent diagnosis of metastatic colon carcinoma. She is recently had surgery. She is months out from her diagnosis and she is currently undergoing chemotherapy. She has significant low back pain, pelvic pain and pain in bilateral shoulders. She does have metastasis to the liver. She is currently on oral narcotics which is not controlling her pain. We were consulted to evaluate her for possible pain pump to help better control her pain. CC: Ana Cristina Velez MD [facility] History I have reviewed the patient's past medical history: Yes Medical History: Reports:: Anxiety, Cancer, Depression, Hypertension Denies:: Diabetes Mellitus Type 1, Diabetes Mellitus Type 2, Internal Pacemaker, Lung Disease, MRSA, Seizures Other Medical History: Reports: Arthritis, Cataracts, Glaucoma, Hormone Therapy, Liver Disease, Sinus Problems. Denies: Blood Transfusion Reaction Laterality Cases: Left: Other, Bilateral: Carpal Tunnel Release Other Surgeries: Yes: Colonoscopy, Hysterectomy-Total, Hysterectomy-Partial, Tubal Ligation, Other. No: Pacemaker Amputation: No Fractures: No - *Social History Smoking Status: Never smoker #Yrs smoked (if former smoker): 10 Alcohol Intake: current Alcohol Intake Frequency:: holidays/special occasions only Substance Use Type: denies use Occupational Status: retired Housing: house Household Members: friend(s) - Psychiatric History Pschychiatric History:: Reports:: Anxiety, Depression *Family Hx:: Cancer, Heart Attack, Hypertension, Stroke Review of Systems - Review of Systems Review of systems:: pertinent systems reviewed and negative unless documented below - *Gastrointestinal Reports abdominal pain, Reports belching, Reports nausea - *Musculoskeletal Reports joint pain, Reports body aches, Reports stiffness Meds Home Medications Medication Instructions Recorded Confirmed Type Multivitamin with Iron [Daily 1 each PO DAILY 09/20/17 03/30/18 History Multivitamin with Iron] Trazodone HCl [Desyrel 50mg tablet] 50 mg PO HS 09/20/17 03/30/18 History lamoTRIgine [Lamictal] 150 mg PO DAILY 09/20/17 03/30/18 History Latanoprost [Xalatan 0.005% Ophth 1 drp OP HS 09/27/17 03/30/18 History Soln 2.5mL] Oxycodone HCl/Acetaminophen 1 tab PO Q4-6H PRN 10/27/17 03/30/18 History [Percocet 7.5/325mg tablet] ALPRAZolam [Xanax 0.5mg tab] 0.5 mg PO BIDP P
== END 2018-04-07 15:30 | disposition home or self-care (01) ==
LOC: INF 11:34
PROVIDERS: Visit Provider Internal Medicine Medical Oncology
DX: Z51.11 Encounter for antineoplastic chemotherapy (principal); C18.9 Malignant neoplasm of colon, unspecified
CPT/HCPCS: 80053; 85025; 96413; 96415; 96417; J9035; J9206; Q0166

== ENCOUNTER 2018-04-13 12:00 | Outpatient (CLI) | payer MEDICARE, OTHER, SELFPAY ==
[2018-04-13 12:45] VITALS: BP 136/71; PULSE 84; RESP 16; O2SAT 97
[2018-04-13 13:15] VITALS: BP 115/61; PULSE 84; RESP 16
[2018-04-13 13:45] VITALS: BP 137/70; PULSE 68; RESP 16; O2SAT 97
== END 2018-04-13 14:00 | disposition home or self-care (01) ==
LOC: INF 12:26
PROVIDERS: Visit Provider Internal Medicine Medical Oncology
DX: C18.9 Malignant neoplasm of colon, unspecified (principal)
CPT/HCPCS: 96360; 96374; 96375; J1642; J2405

== ENCOUNTER 2018-04-24 11:16 | Outpatient (CLI) | payer MEDICARE, OTHER, SELFPAY ==
[2018-04-24 11:16] VITALS: BMI 23.3
[2018-04-24 11:42] LABS: Basophils # 0.1 K/mm3 (0-0.2); Basophils % 0.6 % (0.1-2.0); Eosinophils # 0.6 K/mm3 (0.0-0.4); Eosinophils % 4.9 % (0.1-12.0); Hematocrit 32.7 % (37.0-47.0); Hemoglobin 10.3 g/dL (12.2-16.2); Lymphocytes # 2.2 K/mm3 (0.7-4.5); Lymphocytes % 18.5 % (10-50); Mean Corpuscular HGB Conc 31.5 g/dL (31.8-35.4); Mean Corpuscular Volume 85.6 fl (81-99); Mean Platelet Volume 7.6 fl (7.4-10.4); Monocytes # 0.4 K/mm3 (0.1-1.0); Monocytes % 3.7 % (1.7-9.3); Neutrophils # 8.6 K/mm3 (1.8-7.8); Neutrophils % 72.3 % (37.0-80.0); Platelet Count 537 K/mm3 (142-424); Red Blood Count 3.82 M/mm3 (4.20-5.40); Red Cell Distribution Width 17.4 % (11.5-17.5); White Blood Count 11.9 K/mm3 (4.8-10.8)
[2018-04-24 11:52] LABS: Alanine Aminotransferase 43 U/L (12-78); Albumin Level 2.6 gm/dL (3.4-5.0); Albumin/Globulin Ratio 0.5 (1.1-1.8); Alkaline Phosphatase 602 U/L (46-116); Anion Gap 16.6 mEq/L (5-15); Aspartate Amino Transferase 108 U/L (15-37); Bilirubin,Total 0.6 mg/dL (0.2-1.0); Blood Urea Nitrogen 10 mg/dL (7-18); Calcium 9.6 mg/dL (8.5-10.1); Carbon Dioxide 24 mmol/L (21.0-32.0); Chloride 100 mmol/L (98-107); Creatinine Clearance Estimated 55 mL/min (50-200); Creatinine,Serum 0.96 mg/dL (0.55-1.02); Estimated Glomerular Filt Rate 58 ml/min (>60); GFR (African American) 70 ML/MIN (>60); Globulin 5.2 gm/dl (1.3-3.2); Glucose 103 mg/dL (74-106); Potassium 3.6 mmoL/L (3.5-5.1); Sodium 137 mmol/L (136-145); Total Protein,Serum 7.8 gm/dL (6.4-8.2)
[2018-04-24 12:06] LABS: Microscopic, Urine URINE MICROSCOPIC (MICROSCOPIC)
[2018-04-24 12:09] LABS: Appearance,Urine CLEAR (Clear); Bilirubin,Urine Negative (Negative); Blood, Urine Negative (Negative); Color,Urine YELLOW (Yellow); Glucose,Urine (UA) Negative (Negative); Ketones,Urine Negative (Negative); Leukocyte Esterase,Urine Negative (Negative); Nitrate,Urine Negative (Negative); PH,Urine 7.5 (5.0-8.5); Protein,Urine Negative (Negative); Specific Gravity, Urine 1.015 (1.005-1.030); Urobilinogen,Urine 0.2 EU/dl (0.2)
[2018-04-24 12:21] LABS: Bacteria,Urine Trace /lpf; Mucus,Urine 1+ /lpf; Squamous Epithelial Cell,Urine Occasional #/hpf (0-5); WBC,Urine Occasional #/hpf (0-3)
[2018-04-24 13:05] VITALS: BP 121/67; PULSE 68; RESP 20; TEMP 36.9; O2SAT 95
[2018-04-24 13:30] VITALS: BP 128/61; PULSE 85; RESP 20; TEMP 36.9; O2SAT 95
[2018-04-24 14:00] VITALS: BP 120/64; BP 154/67; PULSE 68; PULSE 88; RESP 20; TEMP 36.9; O2SAT 95
[2018-04-24 14:30] VITALS: BP 110/68; PULSE 88; RESP 20; TEMP 36.9; O2SAT 96
[2018-04-24 14:55] VITALS: BP 109/55; PULSE 68; RESP 20; TEMP 36.9; O2SAT 95
[2018-04-24 15:25] VITALS: BP 112/62; PULSE 68; RESP 20; TEMP 36.9; O2SAT 96
== END 2018-04-24 15:25 | disposition home or self-care (01) ==
LOC: INF 11:16
PROVIDERS: Visit Provider Internal Medicine Medical Oncology
DX: Z51.11 Encounter for antineoplastic chemotherapy (principal); C18.9 Malignant neoplasm of colon, unspecified
CPT/HCPCS: 80053; 81001; 85025; 96413; 96415; 96417; J9035; J9206; Q0166

== ENCOUNTER 2018-05-08 14:30 | Outpatient (CLI) | payer MEDICARE, OTHER, SELFPAY ==
[2018-05-08 14:38] VITALS: BMI 23.3
[2018-05-08 14:58] LABS: Basophils # 0.1 K/mm3 (0-0.2); Basophils % 0.9 % (0.1-2.0); Eosinophils # 0.6 K/mm3 (0.0-0.4); Eosinophils % 4.9 % (0.1-12.0); Hematocrit 33.8 % (37.0-47.0); Hemoglobin 10.7 g/dL (12.2-16.2); Lymphocytes # 1.5 K/mm3 (0.7-4.5); Lymphocytes % 13.2 % (10-50); Mean Corpuscular HGB Conc 31.6 g/dL (31.8-35.4); Mean Corpuscular Volume 85.7 fl (81-99); Mean Platelet Volume 7.2 fl (7.4-10.4); Monocytes # 0.4 K/mm3 (0.1-1.0); Monocytes % 3.8 % (1.7-9.3); Neutrophils # 8.8 K/mm3 (1.8-7.8); Neutrophils % 77.2 % (37.0-80.0); Platelet Count 574 K/mm3 (142-424); Red Blood Count 3.94 M/mm3 (4.20-5.40); Red Cell Distribution Width 16.9 % (11.5-17.5); White Blood Count 11.4 K/mm3 (4.8-10.8)
[2018-05-08 15:11] VITALS: BP 123/73; PULSE 98; RESP 20; TEMP 36.9; O2SAT 98
[2018-05-08 15:12] LABS: Alanine Aminotransferase 40 U/L (12-78); Albumin Level 2.8 gm/dL (3.4-5.0); Albumin/Globulin Ratio 0.5 (1.1-1.8); Alkaline Phosphatase 785 U/L (46-116); Anion Gap 18.2 mEq/L (5-15); Aspartate Amino Transferase 135 U/L (15-37); Bilirubin,Total 0.5 mg/dL (0.2-1.0); Blood Urea Nitrogen 17 mg/dL (7-18); Calcium 9.8 mg/dL (8.5-10.1); Carbon Dioxide 24 mmol/L (21.0-32.0); Chloride 97 mmol/L (98-107); Creatinine Clearance Estimated 43 mL/min (50-200); Creatinine,Serum 1.27 mg/dL (0.55-1.02); Estimated Glomerular Filt Rate 42 ml/min (>60); GFR (African American) 51 ML/MIN (>60); Globulin 5.6 gm/dl (1.3-3.2); Glucose 133 mg/dL (74-106); Potassium 3.2 mmoL/L (3.5-5.1); Sodium 136 mmol/L (136-145); Total Protein,Serum 8.4 gm/dL (6.4-8.2)
[2018-05-08 15:39] VITALS: BP 119/71; PULSE 94; RESP 20; O2SAT 97
[2018-05-08 16:50] VITALS: BP 118/62; PULSE 78; RESP 20; TEMP 36.9; O2SAT 95
[2018-05-08 16:58] LABS: Appearance,Urine CLEAR (Clear); Bilirubin,Urine Negative (Negative); Blood, Urine Negative (Negative); Color,Urine YELLOW (Yellow); Glucose,Urine (UA) Negative (Negative); Ketones,Urine Negative (Negative); Leukocyte Esterase,Urine Negative (Negative); Microscopic, Urine URINE MICROSCOPIC (MICROSCOPIC); Nitrate,Urine Negative (Negative); PH,Urine 5.5 (5.0-8.5); Protein,Urine Negative (Negative); Urobilinogen,Urine 0.2 EU/dl (0.2)
[2018-05-08 17:08] LABS: Bacteria,Urine 3+ /lpf
== END 2018-05-08 17:00 | disposition home or self-care (01) ==
LOC: INF 14:35
PROVIDERS: Visit Provider Internal Medicine Medical Oncology
DX: C18.9 Malignant neoplasm of colon, unspecified (principal); Z51.11 Encounter for antineoplastic chemotherapy; R82.90 Unspecified abnormal findings in urine
CPT/HCPCS: 80053; 81001; 85025; 87086; 96360; J1642

== ENCOUNTER → 2018-05-09 11:22 | Outpatient (CLI) | payer MEDICARE, OTHER, SELFPAY ==
[2018-05-09 12:07] VITALS: BP 120/66; PULSE 101; RESP 18; TEMP 36.4; O2SAT 98
[2018-05-09 12:37] VITALS: BP 119/67; PULSE 99; RESP 18; O2SAT 97
[2018-05-09 13:07] VITALS: BP 123/64; PULSE 97; RESP 18; O2SAT 98
[2018-05-09 13:37] VITALS: BP 121/62; PULSE 98; RESP 18; O2SAT 97
[2018-05-09 14:07] VITALS: BP 122/69; PULSE 95; RESP 18; O2SAT 97
[2018-05-09 14:40] VITALS: BP 124/64; PULSE 90; RESP 18; O2SAT 98
== END ==
PROVIDERS: Visit Provider Internal Medicine Medical Oncology
DX: Z51.11 Encounter for antineoplastic chemotherapy (principal); C18.9 Malignant neoplasm of colon, unspecified
CPT/HCPCS: 96413; 96415; 96417; J9035; J9206; Q0166

== ENCOUNTER 2018-05-31 13:05 | Outpatient (CLI) | payer MEDICARE, OTHER, SELFPAY ==
[2018-05-31 13:12] VITALS: BMI 21.0
[2018-05-31 13:33] LABS: Basophils # 0.1 K/mm3 (0-0.2); Basophils % 0.6 % (0.1-2.0); Eosinophils # 0.6 K/mm3 (0.0-0.4); Eosinophils % 3.8 % (0.1-12.0); Hematocrit 35.4 % (37.0-47.0); Lymphocytes # 1.8 K/mm3 (0.7-4.5); Lymphocytes % 12.1 % (10-50); Mean Corpuscular HGB Conc 31.1 g/dL (31.8-35.4); Mean Corpuscular Hemoglobin 27.2 pg (27.0-31.2); Mean Corpuscular Volume 87.4 fl (81-99); Mean Platelet Volume 8.9 fl (7.4-10.4); Monocytes # 0.6 K/mm3 (0.1-1.0); Monocytes % 3.9 % (1.7-9.3); Neutrophils # 11.6 K/mm3 (1.8-7.8); Neutrophils % 79.6 % (37.0-80.0); Platelet Count 274 K/mm3 (142-424); Red Blood Count 4.05 M/mm3 (4.20-5.40); Red Cell Distribution Width 17.5 % (11.5-17.5); White Blood Count 14.6 K/mm3 (4.8-10.8)
[2018-05-31 13:35] VITALS: BP 132/62; PULSE 111; RESP 18; TEMP 36.1; O2SAT 99
[2018-05-31 13:42] LABS: Alanine Aminotransferase 41 U/L (12-78); Albumin Level 2.4 gm/dL (3.4-5.0); Albumin/Globulin Ratio 0.4 (1.1-1.8); Alkaline Phosphatase 944 U/L (46-116); Anion Gap 19.3 mEq/L (5-15); Aspartate Amino Transferase 189 U/L (15-37); Bilirubin,Total 1.2 mg/dL (0.2-1.0); Blood Urea Nitrogen 17 mg/dL (7-18); Calcium 10.3 mg/dL (8.5-10.1); Carbon Dioxide 23 mmol/L (21.0-32.0); Chloride 99 mmol/L (98-107); Creatinine Clearance Estimated 43 mL/min (50-200); Creatinine,Serum 1.16 mg/dL (0.55-1.02); Estimated Glomerular Filt Rate 47 ml/min (>60); GFR (African American) 56 ML/MIN (>60); Globulin 5.5 gm/dl (1.3-3.2); Glucose 125 mg/dL (74-106); Potassium 3.3 mmoL/L (3.5-5.1); Sodium 138 mmol/L (136-145); Total Protein,Serum 7.9 gm/dL (6.4-8.2)
[2018-05-31 14:05] VITALS: BP 151/73; PULSE 109; RESP 16
[2018-05-31 14:35] VITALS: BP 157/78; PULSE 107; RESP 16
[2018-05-31 15:05] VITALS: BP 157/83; PULSE 104; RESP 16
[2018-05-31 15:35] VITALS: BP 154/77; PULSE 105; RESP 16
== END 2018-05-31 15:50 | disposition home or self-care (01) ==
LOC: INF 13:09
PROVIDERS: Visit Provider Internal Medicine Medical Oncology
DX: C18.9 Malignant neoplasm of colon, unspecified (principal)
CPT/HCPCS: 80053; 85025; 96360; 96361; J1642

== ENCOUNTER 2018-06-01 11:12 | Outpatient (CLI) | payer MEDICARE, OTHER, SELFPAY ==
[2018-06-01 11:12] VITALS: BMI 21.1
[2018-06-01 13:00] VITALS: BP 169/89; PULSE 113; RESP 20; TEMP 36.8; O2SAT 98
[2018-06-01 13:30] VITALS: BP 162/89; PULSE 113; RESP 18; TEMP 36.8; O2SAT 98
[2018-06-01 14:17] VITALS: BP 175/95; PULSE 115; RESP 18; TEMP 36.8; O2SAT 98
--- NOTE | 2018-06-01 14:18 | PC.NURSE ---
urine culture was obtained before pt d/c. flush port, blood return and herparin lock. Pt stable. pt ate veggie soup and crackers during infusion
[2018-06-01 14:33] LABS: Appearance,Urine SL CLOUDY (Clear); Blood, Urine TRACE-L (Negative); Glucose,Urine (UA) Negative (Negative); Ketones,Urine Negative (Negative); Leukocyte Esterase,Urine Negative (Negative); Nitrate,Urine Negative (Negative); PH,Urine 5.5 (5.0-8.5); Protein,Urine TRACE (Negative); Specific Gravity, Urine 1.015 (1.005-1.030)
[2018-06-01 14:46] LABS: Bilirubin,Urine Negative (Negative); Color,Urine Dark Yellow (Yellow)
[2018-06-01 14:50] LABS: Bacteria,Urine 2+ /lpf; RBC,Urine Occasional #/hpf (0-3); WBC,Urine Occasional #/hpf (0-3)
[2018-06-01 15:07] LABS: Microscopic, Urine URINE MICROSCOPIC (MICROSCOPIC)
== END 2018-06-01 14:05 | disposition home or self-care (01) ==
LOC: INF 11:12
PROVIDERS: Visit Provider Internal Medicine Medical Oncology
DX: C18.9 Malignant neoplasm of colon, unspecified (principal); R82.90 Unspecified abnormal findings in urine
CPT/HCPCS: 81001; 87086; 96360; 96374; J1642

== ENCOUNTER 2018-06-06 10:08 | Outpatient (CLI) | payer MEDICARE, OTHER, SELFPAY ==
--- NOTE | 2018-06-06 10:27 | CT_ITS ---
CT abdomen pelvis w con CLINICAL INDICATION: Follow-up metastatic colon cancer ITS.REASON: COLON CANCER ORDERING PHYSICIAN: Ana Cristina Velez MD PATIENT AGE: 67 years COMPARISON: 03/03/2018 TECHNIQUE: Axial images obtained with sagittal and coronal reformats. All CT scans at the facility use one or more dose reduction, viz: automated exposure control, ma/kV adjustment per patient size (including targeted exams where dose is matched to indication, i.e. head), or iterative reconstruction technique. PROCEDURE: Oral Contrast: None IV Contrast: 75 mL's of Isovue 370 performed in conjunction with chest CT. FINDINGS: There is diffuse metastatic involvement of the liver with multiple hepatic masses which have increased in size compared to the previous exam for example, the largest lesion is in the right hepatic lobe superiorly and measures 8.9 x 8.1 cm previously 4.9 x 5.4 cm. There is hepatomegaly The spleen, adrenal glands, and pancreas are unremarkable. There is a small amount perihepatic fluid inferiorly. Moderate amount retained colonic feces. There has been a prior hysterectomy. Small amount fluid is present in the pelvis. No hydronephrosis. No renal or ureteral calculi. 2 cm cyst present within the lateral aspect of the left kidney There are subcortical cystic changes of the left femoral head and acetabulum. No bony destructive process is evident. IMPRESSION: Extensive metastatic disease of the liver which has shown progression compared with previous exam. There is a small amount of perihepatic fluid and small amount fluid in the pelvis.
--- NOTE | 2018-06-06 10:27 | CT_ITS ---
CT chest w con HISTORY: Follow-up colon cancer ITS.REASON: COLON CANCER ORDERING PHYSICIAN: Ana Cristina Velez MD PATIENT AGE: 67 years COMPARISON: 03/03/2018 TECHNIQUE: Axial images obtained following the administration of 75 mL of Isovue 370 . Sagittal, and coronal reformatted images are also generated and reviewed. All CT scans at the facility use one or more dose reduction, viz: automated exposure control, ma/kV adjustment per patient size (including targeted exams where dose is matched to indication, i.e. head), or iterative reconstruction technique. FINDINGS: There is a 1.5 cm lymph node now present within the right aspect of the mediastinum adjacent to the aortic arch having developed in the interval. A 1.5 cm node is present in the right hilum and has also developed since the previous exam. The right hemidiaphragm is elevated. There are several small noncalcified pulmonary nodules present some which are unchanged. A new nodule is present in the left upper lobe posteriorly at 5 mm. Some of the nodules on the right have slightly increased in size. These findings are consistent with metastatic disease. No acute bony anomalies are evident. Extensive metastatic disease is present within the liver which is progressed since the previous study with elevation of the right hemidiaphragm and hepatomegaly. IMPRESSION: 1. Progressive metastatic involvement of the liver with hepatomegaly and elevated right hemidiaphragm 2. There is now evidence of mild mediastinal and right hilar adenopathy. There are scattered small bilateral pulmonary nodules some of which are slightly increased in size with a new nodule in the left upper lobe. Largest nodule is in the right lower lobe posterior to the hilum at 9 mm which is not significant change. These findings are consistent with metastatic disease of the chest with some progression
[2018-06-06 10:45] VITALS: BP 168/96; PULSE 125; RESP 20; TEMP 36.9; O2SAT 95
--- NOTE | 2018-06-06 10:45 | PC.NURSE ---
PT WAS HERE FOR PORT TO GET ACCESSED FOR CT SCAN; PT WAS VERY WEAK; LETHARGIC; TACHYCARDIA NOTED; ELEVATED BP; PT WAS VERY DROWSY AND HAVING A LOT OF PAIN; ENCOURAGED FAMILY TO GO TO THE ER TO GET PATIENT EVALUATED FROM THE MD; PT HAS DECLINED SIGNIFICANTLY OVER THE LAST WEEK; PT WAS SENT TO ER; PORT WAS LEFT ACCESSED FOR THE ER
== END 2018-06-06 10:45 | disposition other institution (70) ==
PROVIDERS: PCP Internal Medicine Medical Oncology; Visit Provider Internal Medicine Medical Oncology
DX: C18.9 Malignant neoplasm of colon, unspecified (principal); Z03.89 Encounter for observation for other suspected diseases and conditions ruled out
CPT/HCPCS: 71260; 74177; Q9967

== ENCOUNTER 2018-06-06 11:04 | Observation (INO) ==
--- NOTE | 2018-06-06 11:18 | Emergency Department Note ---
ED Disposition Clinical Impression: Dehydration, Rectal cancer Disposition: Still a Patient Condition on Discharge: Fair Referrals: Jesus Gannon MD [Primary Care Provider] - - Critical Care Critical Care Time: No Attestation: On 06/06/18, the high probability of a clinically significant, sudden or life threatening deterioration of the following system(s) required my full and direct attention, intervention and personal management. The time I documented below is in addition to time spent performing reported procedures but includes the following listed in this critical care notation. Medical Decision Making - Naeem Inquiry Pt receiving controlled substance: Yes Naeem was queried for this patient: No (On opiates for cancer) Reason not queried -: Emergent pt cond-no time Risks and benefits of using a controlled substance: were not discussed with pt karie carson Vital Signs: 06/06/18 11:08 06/06/18 11:40 06/06/18 11:53 Temperature 97.6 F Temperature Source Temporal Artery Scan Pulse Rate [Right Radial] 121 H 125 H 118 H Respiratory Rate 16 20 Blood Pressure [Right Arm] 146/87 H 166/92 H 158/84 H Blood Pressure Mean [Right Arm] 106 116 108 Blood Pressure Source [Right Arm] Automatic Cuff Automatic Cuff Automatic Cuff Blood Pressure Position [Right Arm] Sitting Supine Sitting 02 Sat by Pulse Oximetry 99 98 99 Oxygen Delivery Method Room Air Room Air Room Air 06/06/18 12:12 06/06/18 12:39 06/06/18 13:03 Temperature 97.8 F Temperature Source Oral Pulse Rate [Right Radial] 117 H 109 H 123 H Respiratory Rate 20 Blood Pressure [Right Arm] 161/93 H 158/85 H 170/90 H Blood Pressure Mean [Right Arm] 115 109 116 Blood Pressure Source [Right Arm] Automatic Cuff Automatic Cuff Automatic Cuff Blood Pressure Position [Right Arm] Supine Supine Sitting 02 Sat by Pulse Oximetry 99 99 99 Oxygen Delivery Method Room Air Room Air Room Air - Lab Data Lab Results 06/06/18 11:05: Amylase 16 L, Lipase 105 06/06/18 11:39: WBC 21.7 H*, RBC 3.69 L, Hgb 10.1 L, Hct 31.9 L, MCV 86.4, MCH 27.3, MCHC 31.6 L, RDW 18.9 H, Plt Count 225, MPV 8.8, Neut % (Auto) 86.7 H, Lymph % (Auto) 8.0 L, [place] % (Auto) 3.9, Eos % (Auto) 0.9, Baso % (Auto) 0.5, Neut # (Auto) 18.8 H, Lymph # (Auto) 1.7, [place] # (Auto) 0.8, Eos # (Auto) 0.2, Baso # (Auto) 0.1, Total Counted 100, Neutrophils % (Manual) 89 H, Lymphocytes % (Manual) 8 L, Monocytes % (Manual) 1 L, Eosinophils % (Manual) 2, Platelet Estimate Normal, Hypochromasia 1+ 06/06/18 11:39: Sodium 131 L, Potassium 3.3 L, Chloride 94 L, Carbon Dioxide 23, Anion Gap 17.3 H, BUN 21 H, Creatinine 0.93, Estimated Creat Clear 50, Estimated GFR 60, Est GFR ( Amer) 73, Glucose 92, Calcium 10.2 H, Total Bilirubin 4.8 H, AST 237 H, ALT 40, Alkaline Phosphatase 792 H, Troponin I < 0.02, Total Protein 7.2, Albumin 2.0 L, Globulin 5.2 H, Albumin/Globulin Ratio 0.4 L 06/06/18 11:39: Lactate 3.5 H Result diagrams: 06/06/18 11:39 06/06/18 11:39 Orders (Tests/Meds): ED MEDICATIONS Discontinued Medications Generic Name Dose Route Start Last Admin Trade Name Freq PRN Reason Stop Dose Admin Morphine Sulfate 4 mg 06/06/18 11:26 06/06/18 11:50 Morphine 4mg/Ml Syringe IV 06/06/18 11:27 4 mg ONCE ONE Administration Ondansetron HCl 4 mg 06/06/18 11:26 06/06/18 11:50 Zofran 4mg/2ml Vial IV 06/06/18 11:27 4 mg ONCE ONE Administration Sodium Chloride 1,000 ml 06/06/18 11:26 06/06/18 11:49 Sod Chlor 0.9% 1000ml Bag IV 06/06/18 11:27 1,000 ml BOLUS ONE Administration ORDERS Category Date Time Status Urinalysis and Microscopic Stat Lab 06/06/18 13:00 Ordered Blood Culture Stat Micro 06/06/18 11:39 Ordered - Radiology Data #1 Image(s): Chest Image Reviewed: Yes I have reviewed radiologist's interpretation - CT Data CT Scan: Abdomen, Pelvis, Chest Time Received: 12:[address] Reviewed: Yes: I have viewed the radiologist's interpretation Findings Narrative: Chest: IMPRESSION: 1. Progressive metastatic involvement of the liver with hepatomegaly and elevated right hemidiaphragm 2. There is now evidence of mild mediastinal and right hilar adenopathy. There are scattered small bilateral pulmonary nodules some of which are slightly increased in size with a new nodule in the left upper lobe. Largest nodule is in the right lower lobe posterior to the hilum at 9 mm which is not significant change. These findings are consistent with metastatic disease of the chest with some progression Dictated By: Daniel Varghese MD Signed By: <Electronically signed by Daniel Varghese MD in [place]> 06/06/18 1249 Abdomen/Pelvis: IMPRESSION: Extensive metastatic disease of the liver which has shown progression compared with previous exam. There is a small amount of perihepatic fluid and small amount fluid in the pelvis. Dictated By: Daniel Varghese MD - ECG Data Tracing #1 EKG interpreted by Noe Britton MD: Rhythm: sinus tachycardia Rate: 122 [place]: normal Ectopy: none Conduction: normal ST Segment Changes: none T Wave Changes: Nonspecific Q Waves: none No evidence of acute ischemia or injury - Physician Consults Physician Consulted: Alfonso Time: 13:54 Reason -: Admission Comment/Response: Agrees to admit the patient to the hospital. We discussed the patient's clinical information, including history, exam, laboratory and radiology results and ED course. Per hospital procedure, I will write temporary bridge inpatient orders on the patient. Patient and family agreeable with admission. Specific orders requested by the admitting physician: IV fluids, morphine, Zofran. General Adult HPI - General Stated complaint: pain, weakness Time Seen by Provider: 06/06/18 11:15 - History of Present Illness HPI narrative: Patient sent from the outpatient department after CT scan of chest and abdomen due to generalized weakness, anorexia, nausea, malaise, fatigue. History primarily obtained from the patient's son. No fever, no diarrhea, no vomiting. Poor oral intake. Weight loss approximately 1-1/2 pounds in the past week. R eceived IV fluids and steroids last week. Had blood work done a few days ago. Has abdominal pain. Unable to get comfortable. Ran out of pain medications yesterday. She has metastatic rectal cancer diagnosed in August. Oncologist is Dr. Velez. Status post colon stent performed by Dr. Post and partial colectomy performed at [facility]. She has liver metastases and positive lymph nodes. Currently on chemotherapy. Last chemotherapy was in early April, treatment plan for later April was canceled due to weakness. - Related Data Home Medications Medication Instructions Recorded Confirmed Multivitamin with Iron [Daily 1 each PO DAILY 09/20/17 06/01/18 Multivitamin with Iron] Trazodone HCl [Desyrel 50mg tablet] 50 mg PO HS 09/20/17 06/01/18 Latanoprost [Xalatan 0.005% Ophth 1 drp OP HS 09/27/17 06/01/18 Soln 2.5mL] ALPRAZolam [Xanax 0.5mg tab] 0.5 mg PO BIDP PRN 11/14/17 06/01/18 Ondansetron HCl [Ondansetron 8mg 8 mg PO TIDP PRN 11/14/17 06/01/18 Tablet] Capecitabine [Xeloda] 1,500 mg PO BID 11/23/17 06/01/18 Mirtazapine [Remeron 15mg tablet] 30 mg PO HS 11/23/17 06/01/18 Naldemedine Tosylate [Symproic] 0.2 mg PO DAILY 11/23/17 06/01/18 Polyethylene Glycol 3350 [Miralax 17 gm PO DAILY 11/23/17 06/01/18 17gm Packet] Morphine Sulfate [MS Contin 15mg 15 mg PO BID 04/07/18 06/01/18 EXTENDED RELEASE tablet] Oxycodone HCl/Acetaminophen 1 each PO Q6HP PRN 04/07/18 06/01/18 [Percocet 10-325 mg Tablet] lamoTRIgine [Lamotrigine] 150 mg PO DAILY 05/08/18 06/01/18 Allergies Allergy/AdvReac Type Severity Reaction Status Date / Time No Known Allergies Allergy Verified 06/01/18 12:04 [facility] History - Hepatitis A Screen Attestation statement:: This patient has been screened for Hepatitis A risk factors. I have reviewed the patient's past medical history: Yes Medical History: Reports:: Anxiety, Cancer, Depression, Hypertension Denies:: Diabetes Mellitus Type 1, Diabetes Mellitus Type 2, Internal Pacemaker, Lung Disease, MRSA, Seizures Other Medical History: Reports: Arthritis, Cataracts, Glaucoma, Hormone Therapy, Liver Disease, Sinus Problems. Denies: Blood Transfusion Reaction Laterality Cases: Left: Other, Bilateral: Carpal Tunnel Release Other Surgeries: Yes: Colonoscopy, Hysterectomy-Total, Hysterectomy-Partial, Tubal Ligation, Other. No: Pacemaker Amputation: No Fractures: No - Social History Smoking Status: Never smoker #Yrs smoked (if former smoker): 10 Alcohol Intake: current Alcohol Intake Frequency:: holidays/special occasions only Substance Use Type: denies use Occupational Status: retired Housing: house Household Members: friend(s) Comment: she did used to drink; if she went out on the weekends; she would drink to get drunk; denies she was a very big drinker - Psychiatric History Pschychiatric History:: Reports:: Anxiety, Depression Family Hx:: Cancer, Heart Attack, Hypertension, Stroke ROS Obtained: Yes All systems reviewed & no additional complaints - Constitutional Constitutional: Reports fatigue, Denies fever(s), Reports poor appetite, Reports lethargy, Reports weakness, Reports weight loss - Gastrointestinal Gastrointestingal: Reports: abdominal pain, nausea. Denies: diarrhea, vomiting Physical Exam - General General appearance: alert Comment: Appears ill and dehydrated. Lips and mouth are very dry. Poor skin turgor. Tachycardic. Drowsy appearing. - Head Head exam: atraumatic, normocephalic - ENT ENT exam: Present: mucous membranes dry - Neck Neck exam: Present: normal inspection, trachea midline - Chest Chest inspection: Present: normal inspection, symmetric chest wall rise - Respiratory Respiratory exam: Present: normal lung sounds bilaterally. Absent: respiratory distress - Cardiovascular Cardiovascular exam: Present: normal rhythm, tachycardia, normal heart sounds - Abdominal Exam Abdominal exam: Present: soft, tenderness, guarding. Absent: rebound, rigidity Abdominal tenderness: Present: diffuse - Extremities Exam Extremities exam: Present: normal inspection - Neurological Exam Neurological exam: Present: other (Drowsy) - Psychiatric Psychiatric exam: Present: flat affect - Skin Skin exam: Present: warm, dry
[2018-06-06 12:05] LABS: Basophils # 0.1 K/mm3 (0-0.2); Basophils % 0.5 % (0.1-2.0); Eosinophils # 0.2 K/mm3 (0.0-0.4); Eosinophils % 0.9 % (0.1-12.0); Hematocrit 31.9 % (37.0-47.0); Hemoglobin 10.1 g/dL (12.2-16.2); Lymphocytes # 1.7 K/mm3 (0.7-4.5); Mean Corpuscular HGB Conc 31.6 g/dL (31.8-35.4); Mean Corpuscular Hemoglobin 27.3 pg (27.0-31.2); Mean Corpuscular Volume 86.4 fl (81-99); Mean Platelet Volume 8.8 fl (7.4-10.4); Monocytes # 0.8 K/mm3 (0.1-1.0); Monocytes % 3.9 % (1.7-9.3); Neutrophils # 18.8 K/mm3 (1.8-7.8); Neutrophils % 86.7 % (37.0-80.0); Platelet Count 225 K/mm3 (142-424); Red Blood Count 3.69 M/mm3 (4.20-5.40); Red Cell Distribution Width 18.9 % (11.5-17.5); White Blood Count 21.7 K/mm3 (4.8-10.8)
[2018-06-06 12:06] LABS: Alanine Aminotransferase 40 U/L (12-78); Albumin/Globulin Ratio 0.4 (1.1-1.8); Alkaline Phosphatase 792 U/L (46-116); Anion Gap 17.3 mEq/L (5-15); Aspartate Amino Transferase 237 U/L (15-37); Bilirubin,Total 4.8 mg/dL (0.2-1.0); Blood Urea Nitrogen 21 mg/dL (7-18); Calcium 10.2 mg/dL (8.5-10.1); Carbon Dioxide 23 mmol/L (21.0-32.0); Chloride 94 mmol/L (98-107); Globulin 5.2 gm/dl (1.3-3.2); Glucose 92 mg/dL (74-106); Potassium 3.3 mmoL/L (3.5-5.1); Sodium 131 mmol/L (136-145); Total Protein,Serum 7.2 gm/dL (6.4-8.2)
[2018-06-06 12:24] LABS: Eosinophils % 2 % (0-3); Hypochromasia 1+; Lymphocytes % 8 % (10-50); Monocytes % 1 % (2-9); Neutrophils % 89 % (42-76); Total Cells Counted 100
[2018-06-06 13:03] LABS: Amylase 16 U/L (25-115); Lipase 105 u/L (73-393)
[2018-06-06 13:44] LABS: Microscopic, Urine URINE MICROSCOPIC (MICROSCOPIC)
[2018-06-06 13:56] LABS: Appearance,Urine CLEAR (Clear); Blood, Urine Negative (Negative); Color,Urine ORANGE (Yellow); Glucose,Urine (UA) Negative (Negative); Ketones,Urine Negative (Negative); Leukocyte Esterase,Urine Negative (Negative); PH,Urine 5.5 (5.0-8.5); Protein,Urine TRACE (Negative)
[2018-06-06 13:59] LABS: Bilirubin,Urine 2+ (Negative)
[2018-06-06 14:09] LABS: Bacteria,Urine Trace /lpf; Squamous Epithelial Cell,Urine Occasional #/hpf (0-5)
--- NOTE | 2018-06-06 15:51 | Pharmacy Consult Notes ---
[facility] Pharmacy VTE Monitoring - Patient Demographics Admission date: 06/06/18 Report Date: 06/06/18 Time: 15:50 Allergies/Adverse Reactions: Patient Allergies No Known Allergies Allergy (Verified 06/01/18 12:04) Height: 1.65 m Weight: 56.727 kg Patient Problems: Current Active Problems Dehydration (Acute) Rectal cancer (Acute) - VTE Risk Labs: VTE Related Lab Results Hgb 10.1 g/dL (12.2-16.2) L 06/06/18 11:39 Hct 31.9 % (37.0-47.0) L 06/06/18 11:39 Plt Count 225 K/mm3 (142-424) 06/06/18 11:39 BUN 21 mg/dL (7-18) H 06/06/18 11:39 Creatinine 0.93 mg/dL (0.55-1.02) 06/06/18 11:39 Estimated Creat Clear 50 mL/min (50-200) 06/06/18 11:39 Was VTE Risk Assessment Performed: Yes VTE Score: 5 VTE Risk Level: Low Risk - Prophylaxis VTE Prophylaxis Ordered?: Yes Types of VTE Prophylaxis: TEDS Knee High Location of Applied Device: Bilateral Lower Extremeties - VTE Diagnosis Confirmed Treatment or plan recommended: Continue Current Treatment
--- NOTE | 2018-06-06 17:21 | History & Physical Report ---
*Admission Date: 06/06/18 *Chief complaint: Weakness *History of present illness: 67-year-old female with rectal carcinoma with metastases to the liver and chest presented to the emergency department after having a CT scan in the hospital today. Patient undergone CT of chest abdomen and pelvis for surveillance of her cancer for which she is undergoing chemotherapy under the supervision of Dr. Velez. Patient has been quite weak over the last few weeks. Nursing is reported it took 3 staff members to get the patient onto and off of the CT scan table. After her CT scan she was sent to the ER because of her weakness. Patient was noticeably dehydrated. She has had very poor p.o. intake. She had multiple lab abnormalities which are not new. Decision was made to admit the patient for IV fluids. At the time of my interview with the patient she is unable to give history and there is no family at bedside. History was taken from the ER note as well as nursing staff. CT of the chest abdomen and pelvis performed prior to presentation to the ER showed progression of metastases in the mediastinum as well as in the liver [facility] History Medical History: Reports:: Anxiety, Cancer (Rectal carcinoma with metastases), Depression, Hypertension Denies:: Diabetes Mellitus Type 1, Diabetes Mellitus Type 2, Internal Pacemaker, Lung Disease, MRSA, Seizures Have you ever received a pneumonia vaccine?: Yes Have you received a flu vaccine this season?: Yes Other Medical History: Reports: Arthritis, Cataracts, Glaucoma, Hormone Therapy, Liver Disease, Sinus Problems. Denies: Blood Transfusion Reaction Laterality Cases: Left: Other, Bilateral: Carpal Tunnel Release Other Surgeries: Yes: Colonoscopy, Colon Resection, Hysterectomy-Total, Hys terectomy-Partial, Tubal Ligation, Other (The rectal stenting). No: Pacemaker Amputation: No Fractures: No - *Social History Smoking Status: Never smoker #Yrs smoked (if former smoker): 10 Alcohol Intake: former Alcohol Intake Frequency:: holidays/special occasions only Substance Use Type: denies use Occupational Status: retired Housing: house Household Members: friend(s) Travel in the last 8 weeks: None - Psychiatric History Expresses thoughts of harming self/others: None Suicide Plan Description: No Plan Pschychiatric History:: Reports:: Anxiety, Depression *Family Hx:: Cancer, Heart Attack, Hypertension, Stroke Review of Systems - Constitutional Reports anorexia, Reports daytime sleepiness, Reports fatigue, Reports lack of energy, Reports weakness, Reports weight loss, Denies body ache(s), Denies chills - *Cardiovascular Denies chest pain, Denies chest pain at rest - *Respiratory Denies chest congestion, Denies cough - *Gastrointestinal Denies abdominal pain, Denies belching, Denies bloating - *Neurologic Reports weakness Meds Home Medications Medication Instructions Recorded Confirmed Type Latanoprost [Xalatan 0.005% Ophth 1 drp OP HS 09/27/17 06/06/18 History Soln 2.5mL] Ondansetron HCl [Ondansetron 8mg 8 mg PO TIDP PRN 11/14/17 06/06/18 History Tablet] Mirtazapine [Remeron 15mg tablet] 30 mg PO HS 11/23/17 06/06/18 History Oxycodone HCl/Acetaminophen 1 - 2 each PO Q6HP PRN 04/07/18 06/06/18 History [Percocet 10-325 mg Tablet] lamoTRIgine [Lamotrigine] 150 mg PO DAILY 05/08/18 06/06/18 History Morphine Sulfate [MS Contin 30mg 30 mg PO BID 06/06/18 06/06/18 History EXTENDED RELEASE tablet] hydroCHLOROthiazide [HCTZ 25mg 25 mg PO DAILY 06/06/18 06/06/18 History tab] Allergies Allergy/AdvReac Type Severity Reaction Status Date / Time No Known Allergies Allergy Verified 06/01/18 12:04 Exam Vital signs and Labs for Last 24 Hours: Temp Pulse Resp BP Pulse Ox 98.4 F 126 H 16 151/85 H 98 06/06/18 15:30 06/06/18 15:30 06/06/18 15:30 06/06/18 15:30 06/06/18 14:21 Laboratory Results - last 24 hr 06/06/18 11:05: Amylase 16 L, Lipase 105 06/06/18 11:39: WBC 21.7 H*, RBC 3.69 L, Hgb 10.1 L, Hct 31.9 L, MCV 86.4, MCH 27.3, MCHC 31.6 L, RDW 18.9 H, Plt Count 225, MPV 8.8, Neut % (Auto) 86.7 H, [place] % (Auto) 8.0 L, [place] % (Auto) 3.9, Eos % (Auto) 0.9, Baso % (Auto) 0.5, Neut # (Auto) 18.8 H, Lymph # (Auto) 1.7, [place] # (Auto) 0.8, Eos # (Auto) 0.2, Baso # (Auto) 0.1, Total Counted 100, Neutrophils % (Manual) 89 H, Lymphocytes % (Manual) 8 L, Monocytes % (Manual) 1 L, Eosinophils % (Manual) 2, Platelet Estimate Normal, Hypochromasia 1+ 06/06/18 11:39: Sodium 131 L, Potassium 3.3 L, Chloride 94 L, Carbon Dioxide 23, Anion Gap 17.3 H, BUN 21 H, Creatinine 0.93, Estimated Creat Clear 50, Estimated GFR 60, Est GFR ( Amer) 73, Glucose 92, Calcium 10.2 H, Total Bilirubin 4.8 H, AST 237 H, ALT 40, Alkaline Phosphatase 792 H, Troponin I < 0.02, Total Protein 7.2, Albumin 2.0 L, Globulin 5.2 H, Albumin/Globulin Ratio 0.4 L 06/06/18 11:39: Lactate 3.5 H 06/06/18 13:00: Urine Color [place], Urine Appearance Clear, Urine pH 5.5, Ur Specific [place] 1.010, Urine Protein Trace, Urine Glucose (UA) Negative, Urine Ketones Negative, Urine Blood Negative, Urine Nitrate Negative, Urine Bilirubin 2+ A, Urine Urobilinogen 1.0, Ur Leukocyte Esterase Negative, Urine RBC None, Urine WBC 3-5, Ur Squamous Epith Cells Occasional, Urine Bacteria Trace 06/06/18 15:57: Lactate 2.8 H I & O for Last 24 hours: Intake & Output 06/04/18 06/05/18 06/06/18 06/07/18 11:59 11:59 11:59 11:59 Intake Total 1000 / 1000 Balance 1000 / 1000 Weight 127 lb 125 lb 1 oz Narrative: -Turkish female. She appears comfortable in bed but looks weak and cachectic. Oropharynx is dry. Lips are dry. Neck has no lymphadenopathy. Lungs are clear. Heart is tachycardic. Abdomen is soft and nontender. Extremities are warm to the touch. Patient does make small movements of the upper and lower extremities. Patient opens her eyes to verbal stimulus but does not speak during the interview Assessment and Plan (1) Rectal cancer metastasized to liver Current visit: Yes Status: Acute Category: Medical Code(s): C20 - Malignant neoplasm of rectum; C78.7 - Secondary malignant neoplasm of liver and intrahepatic bile duct (2) Dehydration Current visit: Yes Status: Acute Category: Medical Code(s): E86.0 - Dehydration - Assessment and plan all Dx Assessment and Plan for all problems:: Patient is dehydrated and weak from her rectal carcinoma with metastases that are showing progression. Her prognosis is poor. Patient was in no condition to discuss comfort measures. I would recommend these. I will make attempts to reach her son to discuss the patient's poor prognosis. She will be given IV fluids. Home medications will be ordered including her as needed meds. Patient is quite sedated at this time and I will hold her long-acting morphine until the morning
--- NOTE | 2018-06-07 07:12 | Discharge Summary ---
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 Patient undergone CT of chest abdomen and pelvis for surveillance of her cancer for which she is undergoing chemotherapy under the supervision of Dr. Velez. Patient has been quite weak over the last few weeks. Nursing is reported it took 3 staff members to get the patient onto and off of the CT scan table. After her CT scan she was sent to the ER because of her weakness. Patient was noticeably dehydrated. She has had very poor p.o. intake. She had multiple lab abnormalities which are not new. Decision was made to admit the patient for IV fluids. At the time of my interview with the patient she is unable to give history and there is no family at bedside. History was taken from the ER note as well as nursing staff. CT of the chest abdomen and pelvis performed prior to presentation to the ER showed progression of metastases in the mediastinum as well as in the liver Hospital Course Hospital Course: Patient was admitted on the afternoon of June 06 on IV fluids. By the morning of June 07 she was more awake and alert. She required assistance from multiple staff to transition from the bed to a seated and even standing position. Patient was limited by her pain responded to the IV morphine or Percocet she was given. Long discussion was had with the patient's son about the patient's health did per his request he did not want me inform her of her CT scan results and preferred to wait until they followed up with her Agustin. I did explain to her son that I do not believe the patient has much longer to live, perhaps a few months, at her current rate of decline. He was understanding. Patient on felt like she did better at home in regards to both pain control and side effects from narcotics with Percocet as opposed to the long-acting morphine she has been prescribed. The long-acting vena cava to the son seems to be a little more sedating and his mother "will not act right". I have asked them to address this with Dr. Velez and have given her a 1 day supply of Percocet to use for pain. Patient was better hydrated on the morning of October where he ninth and was discharged home. She will follow-up tomorrow with Dr. Velez. Objective Vital signs: Temp Pulse Resp BP Pulse Ox 97.8 F 117 H 18 153/89 H 99 06/06/18 20:00 06/06/18 20:00 06/06/18 20:00 06/06/18 20:00 06/06/18 20:00 Results Labs on day of discharge: Labs from last 24 hours 06/06/18 06/06/18 06/06/18 18:20 15:57 13:00 WBC RBC Hgb Hct MCV MCH MCHC RDW Plt Count MPV Neut % (Auto) Lymph % (Auto) [place] % (Auto) Eos % (Auto) Baso % (Auto) Neut # (Auto) Lymph # (Auto) [place] # (Auto) Eos # (Auto) Baso # (Auto) Total Counted Neutrophils % (Manual) Lymphocytes % (Manual) Monocytes % (Manual) Eosinophils % (Manual) Platelet Estimate Hypochromasia Sodium Potassium Chloride Carbon Dioxide Anion Gap BUN Creatinine Estimated Creat Clear Estimated GFR Est GFR ( Amer) Glucose Lactate 2.6 H 2.8 H Calcium Total Bilirubin AST ALT Alkaline Phosphatase Troponin I Total Protein Albumin Globulin Albumin/Globulin Ratio Amylase Lipase Urine Color [place] Urine Appearance Clear Urine pH 5.5 Ur Specific [place] 1.010 Urine Protein Trace Urine Glucose (UA) Negative Urine Ketones Negative Urine Blood Negative Urine Nitrate Negative Urine Bilirubin 2+ A Urine Urobilinogen 1.0 Ur Leukocyte Esterase Negative Urine RBC None Urine WBC 3-5 Ur Squamous Epith Cells Occasional Urine Bacteria Trace 06/06/18 06/06/18 06/06/18 11:39 11:39 11:39 WBC 21.7 H* RBC 3.69 L Hgb 10.1 L Hct 31.9 L MCV 86.4 MCH 27.3 MCHC 31.6 L RDW 18.9 H Plt Count 225 MPV 8.8 Neut % (Auto) 86.7 H Lymph % (Auto) 8.0 L [place] % (Auto) 3.9 Eos % (Auto) 0.9 Baso % (Auto) 0.5 Neut # (Auto) 18.8 H Lymph # (Auto) 1.7 [place] # (Auto) 0.8 Eos # (Auto) 0.2 Baso # (Auto) 0.1 Total Counted 100 Neutrophils % (Manual) 89 H Lymphocytes % (Manual) 8 L Monocytes % (Manual) 1 L Eosinophils % (Manual) 2 Platelet Estimate Normal Hypochromasia 1+ Sodium 131 L Potassium 3.3 L Chloride 94 L Carbon Dioxide 23 Anion Gap 17.3 H BUN 21 H Creatinine 0.93 Estimated Creat Clear 50 Estimated GFR 60 Est GFR ( Amer) 73 Glucose 92 Lactate 3.5 H Calcium 10.2 H Total Bilirubin 4.8 H AST 237 H ALT 40 Alkaline Phosphatase 792 H Troponin I < 0.02 Total Protein 7.2 Albumin 2.0 L Globulin 5.2 H Albumin/Globulin Ratio 0.4 L Amylase Lipase Urine Color Urine Appearance Urine pH Ur Specific [place] Urine Protein Urine Glucose (UA) Urine Ketones Urine Blood Urine Nitrate Urine Bilirubin Urine Urobilinogen Ur Leukocyte Esterase Urine RBC Urine WBC Ur Squamous Epith Cells Urine Bacteria 06/06/18 11:05 WBC RBC Hgb Hct MCV MCH MCHC RDW Plt Count MPV Neut % (Auto) Lymph % (Auto) [place] % (Auto) Eos % (Auto) Baso % (Auto) Neut # (Auto) Lymph # (Auto) [place] # (Auto) Eos # (Auto) Baso # (Auto) Total Counted Neutrophils % (Manual) Lymphocytes % (Manual) Monocytes % (Manual) Eosinophils % (Manual) Platelet Estimate Hypochromasia Sodium Potassium Chloride Carbon Dioxide Anion Gap BUN Creatinine Estimated Creat Clear Estimated GFR Est GFR ( Amer) Glucose Lactate Calcium Total Bilirubin AST ALT Alkaline Phosphatase Troponin I Total Protein Albumin Globulin Albumin/Globulin Ratio Amylase 16 L Lipase 105 Urine Color Urine Appearance Urine pH Ur Specific [place] Urine Protein Urine Glucose (UA) Urine Ketones Urine Blood Urine Nitrate Urine Bilirubin Urine Urobilinogen Ur Leukocyte Esterase Urine RBC Urine WBC Ur Squamous Epith Cells Urine Bacteria DS: Diagnosis - Discharge Diagnosis (1) Rectal cancer metastasized to liver Status: Acute (2) Dehydration Status: Acute (3) Cancer related pain Status: Acute Discharge Plan - Patient Discharge Instructions ACTIVITY: Continue current activity DIET: continue same diet Patient Instructions: DI for Dehydration -- Adult - Follow up Plan Follow up with: Ana Cristina Velez MD [Staff Physician] - 1 day Disposition: Home, Self-Intermediate Medications: Home Medications Medication Instructions Recorded Confirmed Type Latanoprost [Xalatan 0.005% Ophth 1 drp OP HS 09/27/17 06/06/18 History Soln 2.5mL] Ondansetron HCl [Ondansetron 8mg 8 mg PO TIDP PRN 11/14/17 06/06/18 History Tablet] Mirtazapine [Remeron 15mg tablet] 30 mg PO HS 11/23/17 06/06/18 History lamoTRIgine [Lamotrigine] 150 mg PO DAILY 05/08/18 06/06/18 History Morphine Sulfate [MS Contin 30mg 30 mg PO BID 06/06/18 06/06/18 History EXTENDED RELEASE tablet] hydroCHLOROthiazide [HCTZ 25mg 25 mg PO DAILY 06/06/18 06/06/18 History tab] Oxycodone HCl/Acetaminophen 1 - 2 each PO Q6HP PRN #6 tab 06/07/18 Rx [Percocet 10-325 mg Tablet] Prescriptions/Medication Reconciliation: Continue Latanoprost [Xalatan 0.005% Ophth Soln 2.5mL] 1 drp OP HS Ondansetron HCl [Ondansetron 8mg Tablet] 8 mg PO TIDP PRN PRN Reason: Nausea And Vomiting lamoTRIgine [Lamotrigine] 150 mg PO DAILY Mirtazapine [Remeron 15mg tablet] 30 mg PO HS hydroCHLOROthiazide [HCTZ 25mg tab] 25 mg PO DAILY Morphine Sulfate [MS Contin 30mg EXTENDED RELEASE tablet] 30 mg PO BID Oxycodone HCl/Acetaminophen [Percocet 10-325 mg Tablet] 1 - 2 each PO Q6HP PRN #6 tab PRN Reason: pain
[2018-06-07 08:13] LABS: Anion Gap 17.4 mEq/L (5-15); Potassium 3.4 mmoL/L (3.5-5.1)
[2018-06-07 08:36] LABS: Basophils # 0.1 K/mm3 (0-0.2); Eosinophils # 0.3 K/mm3 (0.0-0.4); Mean Corpuscular Volume 87.6 fl (81-99); Neutrophils # 17.5 K/mm3 (1.8-7.8)
[2018-06-07 08:43] LABS: Basophils % 0.6 % (0.1-2.0); Eosinophils % 1.4 % (0.1-12.0); Hematocrit 29.1 % (37.0-47.0); Lymphocytes # 1.9 K/mm3 (0.7-4.5); Lymphocytes % 9.1 % (10-50); Mean Corpuscular HGB Conc 30.4 g/dL (31.8-35.4); Mean Corpuscular Hemoglobin 26.6 pg (27.0-31.2); Mean Platelet Volume 8.6 fl (7.4-10.4); Monocytes # 0.8 K/mm3 (0.1-1.0); Platelet Count 239 K/mm3 (142-424); Red Blood Count 3.32 M/mm3 (4.20-5.40); White Blood Count 20.7 K/mm3 (4.8-10.8)
[2018-06-07 08:45] LABS: Hemoglobin 8.9 g/dL (12.2-16.2)
[2018-06-07 09:23] LABS: Albumin Level 1.6 gm/dL (3.4-5.0); Bilirubin,Direct 3.9 mg/dL (0.0-0.2); Bilirubin,Indirect 0.7 mg/dL (0.0-0.9); Bilirubin,Total 4.6 mg/dL (0.2-1.0); Total Protein,Serum 6.2 gm/dL (6.4-8.2)
[2018-06-07 09:40] LABS: Eosinophils % 2 % (0-3); Lymphocytes % 8 % (10-50); Monocytes % 5 % (2-9); Neutrophils % 85 % (42-76); Nucleated Red Blood Cells 1; Total Cells Counted 100
[2018-06-07 09:41] LABS: Hypochromasia 2+
== END 2018-06-07 09:07 | disposition home or self-care (01) ==
LOC: ER 11:04 → 2ND 11:04
PROVIDERS: ADMIT Family Medicine; ATTEND Family Medicine
CPT/HCPCS: 71010; 71045; 71260; 74177; 80048; 80053; 80076; 81001; 82150; 83605; 83690; 84484; 85007; 85025; 87040; 93005; 96365; 96375; 99285; G0378; J2405; Q9967